=== PATIENT | female | born 1930 | race Caucasian/White ===

== ENCOUNTER → 2016-11-22 | Outpatient (CLI) | payer MEDICARE | LOC: OD 11:41 | PROVIDERS: ATTEND Internal Medicine Pulmonary Disease | DX: J44.9 Chronic obstructive pulmonary disease, unspecified (principal) | CPT/HCPCS: 71020 ==

== ENCOUNTER 2016-11-26 09:14 | Emergency (ER) | payer MEDICARE ==
--- NOTE | 2016-11-26 11:05 | ER Document Report ---
ED Respiratory Problem <CRUZ MENDOSA - Last Filed: 11/26/16 14:40> - General Mode of Arrival: Wheelchair Information source: Patient, Relative TRAVEL OUTSIDE OF THE [place] IN LAST 30 DAYS: No - HPI Patient complains to provider of: Other - Difficulty Breathing Onset: Yesterday Duration: Worse/persistent Context: Hx asthma, Hx COPD Cough: Productive - Yellow/White Sputum Sputum amount: Moderate EMS treatments: Oxygen - 2L <JUANTAD - Last Filed: 11/29/16 13:58> - General Chief Complaint: Breathing Difficulty Stated Complaint: DIFFICULTY BREATHING Notes: This 86-year-old female patient with O2 dependent COPD who does DuoNeb treatments at home comes in complaining of difficulty breathing and a yellow productive cough. She has bronchiectasis, pulmonary fibrosis, COPD. She has had prior pseudomonas lung infections. She has not been on penicillin or tobramycin nebulizations in 2-3 months. At this time she states her breathing feels better, nothing has been done other than to put her on a stretcher. She is on 2 L O2 with 95% O2 sat, she is not tachypneic or dyspneic. (CRUZ MENDOSA) Patient is an 86-year-old female presenting to the emergency department concerned of difficulty breathing onset last night. Patient states that she has a productive cough with yellow and white sputum. Patient denies any fever, and states that she is feeling a little bit better now although she has not received any treatment yet. Patient is on 2 L of oxygen at home, and she is on 2 L of oxygen here in the emergency department at 95% O2 saturation. Patient has a history of COPD, chronic pseudomonas bronchiectasis, and MRSA. Patient's granddaughter states that it has been quite some time since she has been on a round of Prednisone. (TAD MARTINEZ) - Related Data Allergies/Adverse Reactions: No Known Allergies Allergy (Verified 11/26/16 09:29) Past Medical History - General Information source: Patient, Relative - Social History Smoking Status: Former Smoker Cigarette use (# per day): No Chew tobacco use (# tins/day): No Frequency of alcohol use: None Drug Abuse: None Family History: Reviewed & Not Pertinent Patient has suicidal ideation: No Patient has homicidal ideation: No Pulmonary Medical History: Reports: Hx Asthma, Hx COPD, Hx Pneumonia, Other - Chronic pseudomonas bronchiectasis Endocrine Medical History: Denies: Hx Diabetes Mellitus Type 2 - Steroid- induced hyperglycemia Psychiatric Medical History: Reports: Hx Depression - "sometimes" Infectious Medical History: Reports: Hx MRSA Past Surgical History: Reports: Hx Cholecystectomy - Immunizations Hx Diphtheria, Pertussis, Tetanus Vaccination: Yes Hx Pneumococcal Vaccination: 07/31/15 <TAD MARTINEZ - Last Filed: 11/29/16 13:58> Review of Systems - Review of Systems Constitutional: No symptoms reported. denies: Fever EENT: No symptoms reported Cardiovascular: No symptoms reported Respiratory: See HPI, Cough, Short of breath, Sputum - Yellow and White, Wheezing Gastrointestinal: No symptoms reported Genitourinary: No symptoms reported Female Genitourinary: No symptoms reported Musculoskeletal: No symptoms reported Skin: No symptoms reported Hematologic/Lymphatic: No symptoms reported Neurological/Psychological: No symptoms reported -: Yes All other systems reviewed and negative <TAD MARTINEZ - Last Filed: 11/29/16 13:58> Physical Exam - General General appearance: Alert - HEENT Head: Normocephalic, Atraumatic Eyes: Normal Pupils: PERRL - Respiratory Respiratory status: No respiratory distress Chest status: Nontender Breath sounds: Rhonchi - Expiratory wheezes. Higher pitched wheezes in the mid right lobe, Wheezing Chest palpation: Normal - Cardiovascular Rhythm: Regular Heart sounds: Normal auscultation Murmur: No - Abdominal Inspection: Normal Distension: No distension Bowel sounds: Normal Tenderness: Nontender Organomegaly: No organomegaly - Back Back: Normal, Nontender - Extremities General upper extremity: Normal inspection General lower extremity: Normal inspection - Neurological Neuro grossly intact: Yes Cognition: Normal Stan Coma Scale Eye Opening: Spontaneous Stan Coma Scale Verbal: Oriented Stan Coma Scale Motor: Obeys Commands [place] Coma Scale Total: 15 Speech: Normal - Psychological Associated symptoms: Normal affect, Normal mood - Skin Skin Temperature: Warm Skin Moisture: Dry Skin Color: Normal <TAD MARTINEZ - Last Filed: 11/29/16 13:58> - Vital signs Vitals: Temp Pulse Resp BP Pulse Ox 98.0 F 107 H 20 126/54 H 96 11/26/16 09:29 11/26/16 09:29 11/26/16 09:29 11/26/16 09:29 11/26/16 09:29 (CRUZ MENDOSA) (TAD MARTINEZ) Course - Laboratory Result Diagrams: 11/26/16 10:24 11/26/16 10:24 <CRUZ MENDOSA - Last Filed: 11/26/16 14:40> - Laboratory Result Diagrams: 11/26/16 10:24 11/26/16 10:24 <TAD MARTINEZ - Last Filed: 11/29/16 13:58> - Re-evaluation Re-evalutation: 11/26/16 14:40 The patient is presently eating a dinner. She states her breathing feels well. Her pulse ox remains in the 95-96% range on 2 L. She is chronically on 2 L oxygen at home. At this point I do not see a good reason to start antibiotics, particularly with her past history of MRSA and Pseudomonas lung infections. I also do not see a good reason to start steroids at this time due to her lack of significant pulmonary symptoms. (CRUZ MENDOSA) - Vital Signs Vital signs: Temp Pulse Resp BP Pulse Ox 98.0 F 107 H 27 H 138/75 H 95 11/26/16 09:29 11/26/16 09:29 11/26/16 15:01 11/26/16 15:00 11/26/16 15:01 (CRUZ MENDOSA) (TAD MARTINEZ) - Laboratory Laboratory results interpreted by me: 11/26/16 11/26/16 11/26/16 10:24 10:24 13:25 Hgb 10.4 L Hct 33.7 L MCV 78 L MCH 24.0 L MCHC 30.7 L RDW 17.2 H Creatinine 0.51 L Creatine Kinase 22 L Albumin 3.4 L Ur Leukocyte Esterase SMALL H Urine Ascorbic Acid 20 H Discharge <CRUZ MENDOSA - Last Filed: 11/26/16 14:40> <TAD MARTINEZ - Last Filed: 11/29/16 13:58> - Discharge Clinical Impression: COPD with exacerbation, Pulmonary fibrosis Condition: Stable Disposition: HOME, SELF-CARE Additional Instructions: Your chest x-ray does not show an acute change today. Your blood work does not suggest a bacterial infection at this time. Your oxygen levels have remained stable and at a good level the entire day. At this time it does not appear that you will require steroids or antibiotics. Should continue your regular breathing treatments and oxygen at home. You should follow-up with your primary care provider Tuesday for recheck. RETURN TO THE EMERGENCY ROOM IF ANY NEW OR WORSENING SYMPTOMS. Referrals: RAMIREZ NAVARRO MD [Primary Care Provider] - Follow up in 3-5 days Scribe Documentation - Scribe Written by Scribe:: Tad Martinez 11/26/2016 1105 acting as scribe for :: Jose Miguel <TAD MARTINEZ - Last Filed: 11/29/16 13:58>
[2016-11-26] MEDS ORDERED: IPRATROPIUM/ALBUTEROL 0.5-2.5 MG/3 ML AMPUL NEB ONE (11:15)
[2016-11-26] MEDS ORDERED: METHYLPREDNISOLONE INJ 125 MG/2 ML SDV IV ONE (11:15)
[2016-11-26] MEDS ORDERED: ALBUTEROL SULFATE 0.083% NEB 2.5 MG/3 ML AMPUL NEB ONE (12:02)
[2016-11-26 12:54] LABS: ABSOLUTE EOSINOPHILS # (AUTO) 0.2 10^3/uL (0.0-0.6); ABSOLUTE LYMPHOCYTES (AUTO) 1.7 10^3/uL (0.5-4.7); ABSOLUTE NEUT (AUTO) 7.4 10^3/uL (1.7-8.2); BASOPHILS % (AUTO) 0.5 % (0-2); EOSINOPHILS % (AUTO) 1.6 % (0-6); HEMATOCRIT 33.7 % (36.0-47.0); HEMOGLOBIN 10.4 g/dL (12.0-15.5); HGB HCT DIFFERENCE -2.5; LYMPHOCYTES % (AUTO) 16.5 % (13-45); MEAN CORPUSCULAR HGB CONC 30.7 g/dL (32.0-36.0); MEAN CORPUSCULAR VOLUME 78 fl (80-97); RED BLOOD COUNT 4.31 10^6/uL (3.72-5.28); RED CELL DISTRIBUTION WIDTH 17.2 % (11.5-14.0); SEGMENTED NEUTROPHILS % (AUTO) 71.4 % (42-78); WHITE BLOOD COUNT 10.3 10^3/uL (4.0-10.5)
[2016-11-26 13:10] LABS: ALANINE AMINOTRANSFERASE 25 U/L (9-52); ALBUMIN 3.4 g/dL (3.5-5.0); ALKALINE PHOSPHATASE 99 U/L (38-126); ANION GAP 10 (5-19); ASPARTATE AMINO TRANSFERASE 20 U/L (14-36); BILIRUBIN,TOTAL 0.4 mg/dL (0.2-1.3); BLOOD UREA NITROGEN 16 mg/dL (7-20); CALCIUM 9.5 mg/dL (8.4-10.2); CARBON DIOXIDE 27 mmol/L (22-30); CHLORIDE 106 mmol/L (98-107); CREATINE KINASE 22 U/L (30-135); CREATININE RESULT 0.51 mg/dL (0.52-1.25); GLUCOSE 108 mg/dL (75-110); POTASSIUM 3.9 mmol/L (3.6-5.0); SODIUM 142.8 mmol/L (137-145); TOTAL PROTEIN 7.9 g/dL (6.3-8.2)
[2016-11-26 13:22] LABS: CREATINE KINASE MB 0.97 ng/mL (<4.55); TROPONIN I < 0.012 ng/mL
[2016-11-26 13:43] LABS: AMORPHOUS SEDIMENT,URINE TRACE /HPF; APPEARANCE,URINE CLOUDY; BILIRUBIN,URINE NEGATIVE (NEGATIVE); GLUCOSE, URINE NEGATIVE (NEGATIVE); KETONES,URINE NEGATIVE (NEGATIVE); LEUKOCYTE ESTERASE,URINE SMALL (NEGATIVE); NITRITE,URINE NEGATIVE (NEGATIVE); PROTEIN,URINE NEGATIVE (NEGATIVE); URINE SPECIFIC GRAVITY 1.014; UROBILINOGEN,URINE NEGATIVE mg/dL (<2.0)
[2016-11-26 15:11] VITALS: BP 138/75
== END 2016-11-26 15:12 | disposition home or self-care (01) ==
LOC: ER 09:14
DX: J44.1 Chronic obstructive pulmonary disease with (acute) exacerbation (principal); J84.10 Pulmonary fibrosis, unspecified; J45.909 Unspecified asthma, uncomplicated; R05 Cough; R06.02 Shortness of breath; Z99.81 Dependence on supplemental oxygen; Z86.14 Personal history of Methicillin resistant Staphylococcus aureus infection; Z87.891 Personal history of nicotine dependence; Z87.01 Personal history of pneumonia (recurrent)
CPT/HCPCS: 94640 ×2; 99285; 96374; 36415; 87040; 82553; 82550; 85025; 80053; 81001; 84484; 71010; J2930; A9270 ×2; J7620

== ENCOUNTER 2016-11-29 18:30 | Inpatient (IN) | payer MEDICARE ==
[2016-11-29] MEDS ORDERED: METHYLPREDNISOLONE INJ 125 MG/2 ML SDV IV ONE (18:37)
[2016-11-29] MEDS ORDERED: IPRATROPIUM/ALBUTEROL 0.5-2.5 MG/3 ML AMPUL NEB ONE ×2 (18:37→22:03)
--- NOTE | 2016-11-29 18:37 | ER Document Report ---
ED Medical Screen (RME) - General Stated Complaint: BREATHING PROBLEM Notes: 86-year-old female returns emergency department shortness of breath, tachycardia history of COPD on 2 L of continuous oxygen. Discharged from the ED 3 days ago and returns with worsening symptoms. I have greeted and performed a rapid initial assessment of this patient. A comprehensive ED assessment and evaluation of the patient, analysis of test results and completion of the medical decision making process will be conducted by additional ED providers. TRAVEL OUTSIDE OF THE [place] IN LAST 30 DAYS: No - Related Data Allergies/Adverse Reactions: No Known Allergies Allergy (Verified 11/29/16 18:35) Past Medical History - Past Medical History Cardiac Medical History: Denies: Hx Congestive Heart Failure, Hx DVT, Hx Heart Attack, Hx Hypercholesterolemia, Hx Hypertension, Hx Pulmonary Embolism Pulmonary Medical History: Reports: Hx Asthma, Hx COPD, Hx Pneumonia Neurological Medical History: Denies: Hx Seizures Endocrine Medical History: Denies: Hx Diabetes Mellitus Type 1, Hx Diabetes Mellitus Type 2 - Steroid-induced hyperglycemia, Hx Hyperthyroidism, Hx Hypothyroidism Renal/ Medical History: Denies: Hx Peritoneal Dialysis GI Medical History: Denies: Hx Cirrhosis, Hx Gastroesophageal Reflux Disease, Hx Hepatitis Musculoskeltal Medical History: Denies Hx Arthritis Psychiatric Medical History: Reports: Hx Depression - "sometimes" Infectious Medical History: Reports: Hx MRSA. Denies: Hx Hepatitis Past Surgical History: Reports: Hx Cholecystectomy - Immunizations Hx Diphtheria, Pertussis, Tetanus Vaccination: Yes
[2016-11-29] MEDS: ALBUTEROL SULFATE 0.083% NEB 2.5 MG/3 ML AMPUL NEB SCH ×2 (19:12→21:01)
[2016-11-29] MEDS ORDERED: NORMAL SALINE 1000 ML 1,000 ML IV ONE (19:24)
--- NOTE | 2016-11-29 19:31 | ER Document Report ---
ED Respiratory Problem - General Time seen by provider: 19:20 Mode of Arrival: Medic Information source: Patient, Relative TRAVEL OUTSIDE OF THE [place] IN LAST 30 DAYS: No - HPI Patient complains to provider of: COPD, Cough, Short of breath Onset: This afternoon - see HPI note Duration: Worse/persistent Context: Hx COPD <MELANY LONDONO - Last Filed: 11/30/16 00:14> <YANY JENKINS - Last Filed: 11/30/16 01:45> - General Chief Complaint: Breathing Difficulty Stated Complaint: BREATHING PROBLEM Notes: Patient is an 86-year-old female presenting to the emergency department with complaints of difficulty breathing. Patient's difficulty putting his onset this afternoon. Patient was seen Tuesday in emergency department and states she is worse since then. Patient has had pneumonia in the past. Patient complains of sometimes having some left sided abdominal pains. Patient is asked to sit up today and also complains of cough. Patient's family confirms that the patient is DO NOT RESUSCITATE and DO NOT INTUBATE. (MELANY LONDONO) - Related Data Allergies/Adverse Reactions: No Known Allergies Allergy (Verified 11/29/16 18:35) Past Medical History - General Information source: Patient, [facility] Records - Social History Smoking Status: Never Smoker Chew tobacco use (# tins/day): No Frequency of alcohol use: None Drug Abuse: None Family History: None Patient has suicidal ideation: No Patient has homicidal ideation: No Pulmonary Medical History: Reports: Hx Asthma, Hx COPD, Hx Pneumonia Endocrine Medical History: Reports: Hx Diabetes Mellitus Type 2 - Steroid- induced hyperglycemia Musculoskeltal Medical History: Denies Hx Arthritis Psychiatric Medical History: Reports: Hx Depression - "sometimes" Infectious Medical History: Reports: Hx MRSA Past Surgical History: Reports: Hx Cholecystectomy - Immunizations Hx Diphtheria, Pertussis, Tetanus Vaccination: Yes Hx Pneumococcal Vaccination: 07/31/15 <MELANY LONDONO - Last Filed: 11/30/16 00:14> Review of Systems - Review of Systems Constitutional: No symptoms reported EENT: No symptoms reported Cardiovascular: No symptoms reported Respiratory: See HPI, Cough, Short of breath Gastrointestinal: See HPI, Abdominal pain Genitourinary: No symptoms reported Female Genitourinary: No symptoms reported Musculoskeletal: No symptoms reported Skin: No symptoms reported Hematologic/Lymphatic: No symptoms reported Neurological/Psychological: No symptoms reported -: Yes All other systems reviewed and negative <MELANY LONDONO - Last Filed: 11/30/16 00:14> Physical Exam - Vital signs Interpretation: Hypertensive, Tachycardic, Hypoxic, Tachypneic - General General appearance: Alert In distress: Mild - Respiratory Respiratory status: Respiratory distress Chest status: Nontender, Accessory muscle use Breath sounds: Decreased air movement, Wheezing - Cardiovascular Rhythm: Regular, Tachycardia - Back Back: Normal - Extremities General upper extremity: Normal inspection, Normal ROM General lower extremity: Normal inspection, Normal ROM - Psychological Associated symptoms: Normal affect, Normal mood <YANY JENKINS - Last Filed: 11/30/16 01:45> - Vital signs Vitals: Temp Pulse Resp BP Pulse Ox 98.7 F 124 H 32 H 156/71 H 97 11/29/16 18:37 11/29/16 18:37 11/29/16 18:37 11/29/16 18:37 11/29/16 18:37 (MELANY LONDONO) (YANY JENKINS) Course - Laboratory Result Diagrams: 11/29/16 19:45 11/29/16 19:45 - Consults Dr. Perez Time consulted: 21:27 Consulted provider: will see as inpatient <MELANY LONDONO - Last Filed: 11/30/16 00:14> - Laboratory Result Diagrams: 11/29/16 19:45 11/29/16 19:45 - Diagnostic Test Radiology reviewed: Image reviewed, Reports reviewed <YANY JENKINS - Last Filed: 11/30/16 01:45> - Re-evaluation Re-evalutation: 11/29/16 20:41 Patient is an 78-year-old female who comes in with difficulty breathing. Patient with wheezing on exam. Patient with probable pneumonia. Patient has been given nebulizer treatments and steroids here. She has been given magnesium and started on antibiotics. Blood cultures have been sent. Patient was discussed with family who reiterates the patient is DNR/DNI. Patient has been placed on BiPAP after being given Ativan and she is tolerate it well. Blood gas within normal limits. Patient will be admitted to telemetry. ( YANY JENKINS) - Vital Signs Vital signs: Temp Pulse Resp BP Pulse Ox 97.8 F 93 32 H 124/56 L 95 11/30/16 00:45 11/30/16 00:45 11/30/16 00:45 11/30/16 00:45 11/30/16 00:45 (MELANY LONDONO) (YANY JENKINS) - Laboratory Laboratory results interpreted by me: 11/29/16 11/29/16 11/29/16 19:45 19:45 20:07 WBC 13.4 H Hgb 10.8 L Hct 34.4 L MCV 76 L MCH 24.0 L MCHC 31.5 L RDW 16.3 H Seg Neutrophils % 80.1 H Lymphocytes % 10.2 L Absolute Neutrophils 10.8 H Carbon Dioxide 32 H BUN 21 H Creatinine 0.47 L Glucose 142 H POC Glucose 148 H Total Protein 8.7 H Albumin 3.4 L (YANY JENKINS) - Consults Dr. Perez Reason for consultation: 11/29/16 21:[address] Perez, patient will be admitted. (MELANY LONDONO) Discharge <MELANY LONDONO - Last Filed: 11/30/16 00:14> - Discharge Admitting Provider: Slim Perez Unit Admitted: Telemetry <YANY JENKINS - Last Filed: 11/30/16 01:45> - Discharge Clinical Impression: COPD with exacerbation, DNR (do not resuscitate), Respiratory distress Pneumonia Qualifiers: Pneumonia type: due to methicillin-resistant Staphylococcus aureus (MRSA) Laterality: unspecified laterality Lung location: unspecified part of lung Qualified Code(s): J15.212 - Pneumonia due to Methicillin resistant Staphylococcus aureus Condition: Stable Disposition: ADMITTED INPATIENT Scribe Attestation: 11/30/16 01:45 I personally performed the services described in the documentation, reviewed and edited the documentation which was dictated to the scribe in my presence, and it accurately records my words and actions. (YANY JENKINS) Scribe Documentation - Scribe Written by Scribe:: Melany Londono 11/30/16 00:20 acting as scribe for :: Mike <MELANY LONDONO - Last Filed: 11/30/16 00:14>
[2016-11-29] MEDS ORDERED: CEFEPIME 2 GM/D5W RTU 50 ML IV ONE (19:43)
[2016-11-29] MEDS ORDERED: LEVOFLOXACIN 500 MG/D5W RTU 100 ML IV ONE (19:44)
[2016-11-29] MEDS ORDERED: VANCOMYCIN HCL INJ 1000 MG VIAL IV ONE (19:44)
[2016-11-29 20:06] LABS: ABSOLUTE EOSINOPHILS # (AUTO) 0.2 10^3/uL (0.0-0.6); ABSOLUTE LYMPHOCYTES (AUTO) 1.4 10^3/uL (0.5-4.7); ABSOLUTE MONOCYTES (AUTO) 1.1 10^3/uL (0.1-1.4); ABSOLUTE NEUT (AUTO) 10.8 10^3/uL (1.7-8.2); BASOPHILS % (AUTO) 0.2 % (0-2); EOSINOPHILS % (AUTO) 1.2 % (0-6); HEMATOCRIT 34.4 % (36.0-47.0); HEMOGLOBIN 10.8 g/dL (12.0-15.5); LYMPHOCYTES % (AUTO) 10.2 % (13-45); MEAN CORPUSCULAR HGB CONC 31.5 g/dL (32.0-36.0); MEAN CORPUSCULAR VOLUME 76 fl (80-97); MONOCYTES % (AUTO) 8.3 % (3-13); RED BLOOD COUNT 4.52 10^6/uL (3.72-5.28); RED CELL DISTRIBUTION WIDTH 16.3 % (11.5-14.0); SEGMENTED NEUTROPHILS % (AUTO) 80.1 % (42-78); VENOUS BLOOD BASE EXCESS 5.7 mmol/L; VENOUS BLOOD HCO3 31.3 mmol/L (20-32); VENOUS BLOOD PCO2 49.4 mmHg (35-63); VENOUS BLOOD PH 7.42 (7.30-7.42); WHITE BLOOD COUNT 13.4 10^3/uL (4.0-10.5)
[2016-11-29 20:14] LABS: PROTHROMBIN TIME 13.5 SEC (11.4-15.4)
[2016-11-29] MEDS ORDERED: LORAZEPAM INJ 2 MG/1 ML VIAL IV ONE (20:15)
[2016-11-29] MEDS: MAGNESIUM SULFATE/D5W 100 ML IV SCH ×2 (20:24→21:50)
[2016-11-29 20:30] LABS: ALANINE AMINOTRANSFERASE 23 U/L (9-52); ALBUMIN 3.4 g/dL (3.5-5.0); ALKALINE PHOSPHATASE 106 U/L (38-126); ANION GAP 9 (5-19); ASPARTATE AMINO TRANSFERASE 30 U/L (14-36); BILIRUBIN,TOTAL 0.5 mg/dL (0.2-1.3); BLOOD UREA NITROGEN 21 mg/dL (7-20); CALCIUM 9.6 mg/dL (8.4-10.2); CARBON DIOXIDE 32 mmol/L (22-30); CHLORIDE 98 mmol/L (98-107); CREATININE RESULT 0.47 mg/dL (0.52-1.25); GLUCOSE 142 mg/dL (75-110); POTASSIUM 4.3 mmol/L (3.6-5.0); SODIUM 139.2 mmol/L (137-145); TOTAL PROTEIN 8.7 g/dL (6.3-8.2)
[2016-11-29] MEDS ORDERED: CEFEPIME HCL 2 GM in DEXTROSE 5%-WATER 50 ML IV ONE (22:00)
[2016-11-29 23:53] LABS: APPEARANCE,URINE SLIGHTLY-CLOUDY; BILIRUBIN,URINE NEGATIVE (NEGATIVE); GLUCOSE, URINE 50 mg/dL (NEGATIVE); KETONES,URINE NEGATIVE (NEGATIVE); LEUKOCYTE ESTERASE,URINE TRACE (NEGATIVE); NITRITE,URINE NEGATIVE (NEGATIVE); PROTEIN,URINE NEGATIVE (NEGATIVE); URINE SPECIFIC GRAVITY 1.005; UROBILINOGEN,URINE NEGATIVE mg/dL (<2.0)
--- NOTE | 2016-11-30 00:05 | EKG REPORT ---
SEVERITY:- ABNORMAL ECG - SINUS TACHYCARDIA PROBABLE LEFT ATRIAL ABNORMALITY : Confirmed by: Cali Miguel 30-Nov-2016 00:04:48
[2016-11-30 00:36] LABS: VENOUS BLOOD BASE EXCESS -2.1 mmol/L; VENOUS BLOOD HCO3 23.5 mmol/L (20-32); VENOUS BLOOD PCO2 43.3 mmHg (35-63); VENOUS BLOOD PH 7.35 (7.30-7.42)
[2016-11-30] MEDS ORDERED: GUAIFENESIN SYRP 200 MG/10 ML UDC PO PRN ×2 (02:36→11:22)
[2016-11-30] MEDS ORDERED: GLUCAGON,HUMAN RECOMB 1 MG INJ IM PRN (02:49)
[2016-11-30] MEDS ORDERED: DEXTROSE 50%-WATER 25 GM/50 ML DISP.SYRIN IV PRN ×2 (02:49)
[2016-11-30] MEDS ORDERED: DEXTROSE 40% GEL 15 GM TUBE PO PRN ×2 (02:49)
[2016-11-30] MEDS ORDERED: ACETAMINOPHEN 325 MG TABLET PO PRN (02:51)
[2016-11-30] MEDS ORDERED: ALBUTEROL SULFATE 0.083% NEB 2.5 MG/3 ML AMPUL NEB PRN (02:51)
[2016-11-30] MEDS ORDERED: GENTAMICIN SULFATE 0 MG in DEXTROSE 5%-WATER 100 ML IV NR (03:00)
[2016-11-30] MEDS ORDERED: PHARMACY COMMUNICATION ORDER MC NR (03:00)
--- NOTE | 2016-11-30 03:18 | PDOC H&P ---
History of Present Illness Admission Date/PCP: 11/29/16 21:48 RAMIREZ NAVARRO Patient complains of: SHORT OF BREATH History of Present Illness: SANG CHOW is a 86 year old female with known underlying COPD , bronchiectasis, and pulmonary fibrosis who presents For evaluation of above complaint. Patient has been discussed with emergency room physician who evaluated the patient. Patient is oriented only to the fact that she is in the hospital and is able to provide no history whatsoever in terms of acute or chronic events, review of systems, personal habits, family history, etc. No friends or family are present. Old inpatient records are reviewed. Most of her verbalization is only unintelligible mumbling. According to emergency room physician notes, difficulty breathing began the afternoon of the . Was seen in the emergency room last Tuesday. Patient told the emergency room physician she is worse since then. Complains of cough. No further information available this point in time. BIPAP applied by ER MD, with improvement in her overall clinical picture. Laboratory results are listed in [employer] and are reviewed. X-ray summary results are listed below, with full report(s) reviewed. . EKG reviewed. Social history/personal habits: . Daughter is . 2 grandchildren. No tobacco or illicit drug use. Reportedly a rather extensive history of secondhand smoke exposure from her . History of drinking a rare glass of wine; uncertain current intake.No further information available this point in time. Allergies/adverse reactions NKDA. Home medicationshome medications initially autopopulated into [employer] may not accurately reflect patient's true medications, dosages, and/or frequencies. Unfortunately, patient not able to provide any information related to medications/dosages/frequencies. Order has been entered for staff to contact family, outpatient physician, and/or pharmacy to more accurately determine medications, dosages, and frequencies and to contact physician when that has been accomplished. REVIEW OF SYSTEMS: See history and present illness.No further information available this point in time. PHYSICAL EXAMINATION: 5 feet 3 inches tall. 41.7 kg. BMI 16.3 kg/m. Temperature 97.8. Pulse 98 and regular. Blood pressure 124/56. 95% saturation on BiPAP 40%, 12/6. Respirations are 28 and unlabored. Intermittent coarse slightly productive cough. Frail otherwise well-nourished elderly female appearing approximately her stated age. She is awake. Does follow basic commands appropriately. Verbal response as noted in history and present illness. Mildly anxious, but no agitation. Skin is warm and dry. No grossly obvious evidence of rash in areas of skin examined. No subcutaneous nodules palpated. Per nursing staff, no evidence of skin breakdown on posterior surfaces, heels or malleoli. ENT: Perhaps Mildly hard of hearing to normal conversation. Tongue midline on protrusion pink and slightly tacky. Exam slightly limited by BiPAP mask with attaching straps. Eyes: No scleral icterus. Pupils equal and reactive to light at 4 mm. [place] conjunctivae. Neck is supple and nontender to gentle active range of motion and palpation. Midline trachea. No palpable thyroid nodule mass enlargement or tenderness. Lymphatic: No palpable cervical or clavicular nodes. Neck and lymphatic exams limited by patient body habitus. Exam slightly limited by BiPAP mask with attaching straps. Psychiatric: Not able to be adequately evaluated due to her current status. Lungs: Auscultation reveals equal breath sounds bilaterally. No use of accessory respiratory muscles. Slightly coarse breath sounds, right base. Cardiovascular: Heart regular rate and rhythm, without gallop murmur or rub. No abdominal aortic bruits. Auscultation for carotid bruits masked by airway sounds from BiPAP device. No ankle or pedal edema. Faintly palpable dorsalis pedis pulses. Abdomen: soft, , slightly distended nontender with positive bowel sounds. Unable to adequately evaluate abdomen for masses or organomegaly due to distention. Extremities: Feet are warm and dry. No calf tenderness to compression. No grossly obvious visual evidence of calf swelling. Gentle manipulation of lower extremities fails to reveal any obvious evidence of injury or instability to knees hips or ankles. Neurologic: Moves upper extremities grossly normally. Patellar reflexes absent. Absent Babinski. Light touch can't be adequately evaluated due to her current mental status.. Dorsiflexion and plantarflexion of feet 5 / 5 and symmetric. Past Medical History Cardiac Medical History: Denies: Congestive Heart Failure, DVT, Myocardial Infarction, Hyperlipidema, Hypertension, Pulmonary Embolism Pulmonary Medical History: Reports: Asthma, Chronic Obstructive Pulmonary Disease (COPD), Pneumonia, Other - bronchiectasis, pulm fibrosis Neurological Medical History: Denies: Seizures Endocrine Medical History: Reports: Diabetes Mellitus Type 2 - Steroid-induced hyperglycemia Denies: Diabetes Mellitus Type 1, Hyperthyroidism, Hypothyroidism GI Medical History: Denies: Cirrhosis, Gastroesophageal Reflux Disease, Hepatitis Musculoskeltal Medical History: Denies: Arthritis Psychiatric Medical History: Reports: Depression Infectious Medical History: Reports: Methicillin-Resistant Staph Aureus Past Surgical History Past Surgical History: Reports: Cholecystectomy Social History Information Source: [facility], [facility] Records Smoking Status: Never Smoker Frequency of Alcohol Use: None Hx Recreational Drug Use: No Drugs: None Hx Prescription Drug Abuse: No - Advance Directive Resuscitation Status: Do Not Resuscitate Surrogate healthcare decision maker:: Granddaughter Khushbu Agrawal. Per emergency room physician, documented in her notes, she did confirm with family that patient is to remain DO NOT RESUSCITATE/ DO NOT INTUBATE. At 2:43 AM this morning, I attempted to contact by telephone Miss Agrawal. Generic voicemail was left, requesting that she call me at the hospital. Per July 2016 history and physical, patient does have a portable DO NOT RESUSCITATE document. Currently not on the chart. Family History Family History: None Parental Family History Reviewed: No - No information available this point in time. Children Family History Reviewed: No Sibling(s) Family History Reviewed.: No Medication/Allergy Home Medications: RX: Benzonatate [Tessalon Perles 100 mg Capsule] 100 mg PO TIDP PRN 11/30/16 RX: Fluticasone Propionate [Flonase Nasal [place] 50 Mcg/[place] 16 gm] 2 spray NASL Q12 11/30/16 RX: Guaifenesin [Mucinex Sr 600 mg Tablet.sa] 600 mg PO DAILY 11/30/16 RX: Guaifenesin [Robitussin Syrup 200 mg/10 ml Ud Cup] 200 mg PO QIDP PRN RX: Ipratropium/Albuterol Sulfate [Iprat-Albut 0.5-3(2.5) mg/3 ml] 3 ml NEB Q6HP PRN 11/30/16 RX: Mirtazapine [Remeron 15 mg Tablet] 15 mg PO QHS 11/30/16 RX: Multivitamin [Multivitamins] 1 each PO DAILY 11/30/16 RX: Propylene Glycol/Peg 400/Pf [Systane 0.3-0.4% Eye Drops] 1 each OU HSP PRN 11/30/16 RX: Acetaminophen [Tylenol 325 mg Tablet] 975 mg PO Q8 tablet 12/04/16 RX: Calcium Carbonate/Vitamin D3 [Os-Samuel 250 mg with Vitamin D 125 Units] 2 tab PO DAILY tablet 12/04/16 RX: Carboxymethylcellulose Sodium [Refresh Plus 0.5% Oph Soln 0.4 ml [place] ] 1 drop OU HSP PRN droperette 12/04/16 RX: Fluticasone Propionate [Flonase Nasal [place] 50 Mcg/[place] 16 gm] 2 spray NASL Q12 spray.pump 12/04/16 RX: Guaifenesin [Mucinex Sr 600 mg Tablet.sa] 600 mg PO DAILY PRN tablet.sa 02/14 RX: Levofloxacin [Levaquin 250 mg Tablet] 250 mg PO DAILY #5 tablet 12/04/16 RX: Prednisone [Deltasone 20 mg Tablet] 20 mg PO DAILY #3 tablet 12/04/16 Allergies/Adverse Reactions: No Known Allergies Allergy (Verified 11/29/16 18:35) Physical Exam Vital Signs: Temp Pulse Resp BP Pulse Ox 97.8 F 89 32 H 124/56 L 95 11/30/16 00:45 11/30/16 02:00 11/30/16 00:45 11/30/16 00:45 11/30/16 00:45 Intake & Output 11/29/16 11/30/16 12/01/16 00:59 00:59 00:59 Weight 41.7 kg Results Laboratory Results: 11/29/16 11/30/16 22:34 00:27 VBG pH 7.35 VBG pCO2 43.3 VBG HCO3 23.5 VBG Base Excess -2.1 Urine Color YELLOW Urine Appearance SLIGHTLY-CLOUDY Urine pH 7.0 Ur Specific [place] 1.005 Urine Protein NEGATIVE Urine Glucose (UA) 50 H Urine Ketones NEGATIVE Urine Blood NEGATIVE Urine Nitrite NEGATIVE Ur Leukocyte Esterase TRACE H Urine WBC (Auto) 5 Urine RBC (Auto) 1 Impressions: Chest X-Ray 11/29/16 18:37 IMPRESSION: Stable coarse interstitial/nodular changes throughout the lung snow, with known bronchiectasis. No new confluent infiltrates. Assessment & Plan - Diagnosis (1) Abnormal urinalysis Is this a current diagnosis for this admission?: YesPlan: Urine culture. (2) Acute and chronic respiratory failure with hypercapnia Is this a current diagnosis for this admission?: YesPlan: Patient will be admitted under COPD exacerbation and pneumonia protocol. Incentive spirometry twice a day. Scheduled DuoNeb's. PRN albuterol nebs Solu-Medrol IV Pepcid for gastritis prophylaxis. Antibiotics will consist of intravenous gentamicin, along with tobramycin nebulizer treatments, per review of her July 2016 discharge summary. Pharmacy to assist with gentamicin dosing.. Rapid flu ordered. Prior sputum culture and sensitivity results noted. Knee high SCDs for DVT prophylaxis, along with subcutaneous heparin. Time spent in evaluation and management of patient: 58 minutes. (3) COPD with exacerbation Is this a current diagnosis for this admission?: Yes (4) History of MRSA infection of lungs Is this a current diagnosis for this admission?: YesPlan: Contact precautions. (5) Pneumonia Qualifiers: Pneumonia type: due to methicillin-resistant Staphylococcus aureus (MRSA) Laterality: unspecified laterality Lung location: unspecified part of lung Qualified Code(s): J15.212 - Pneumonia due to Methicillin resistant Staphylococcus aureus Is this a current diagnosis for this admission?: Yes (6) DNR (do not resuscitate) Is this a current diagnosis for this admission?: Yes (7) Bronchiectasis Qualifiers: Bronchiectasis type: with acute lower respiratory infection Qualified Code(s): J47.0 - Bronchiectasis with acute lower respiratory infection Is this a current diagnosis for this admission?: Yes (8) Pulmonary fibrosis Is this a current diagnosis for this admission?: Yes - Inpatient Certification Based on my medical assessment, after consideration of the patient's comorbidities, presenting symptoms, or acuity I expect that the services needed warrant INPATIENT care.: Yes I certify that my determination is in accordance with my understanding of Medicare's requirements for reasonable and necessary INPATIENT services [42 CFR 412.3e].: Yes Medical Necessity: Need Close Monitoring Due to Risk of Patient Decompensation, Need For IV Fluids, Need For Continuous Telemetry Monitoring, Need for Nebulizer Therapy and Monitoring of Response, Need for IV Antibiotics, Risk of Complication if Not Cared For in Hospital, Risk of Diagnosis Which Will Require Inpatient Eval/Care/Monitoring Post Hospital Care: D/C or Transfer Summary
[2016-11-30] MEDS: METHYLPREDNISOLONE INJ 40 MG/1 ML SDV IV SCH ×3 (03:38→20:44)
[2016-11-30] MEDS: NORMAL SALINE 1000 ML 1,000 ML IV PRN ×2 (03:38→16:20)
[2016-11-30] MEDS ORDERED: TOBRAMYCIN SULFATE INJ 80 MG/2 ML VIAL NEB ONE (03:45)
[2016-11-30 07:30] LABS: ABSOLUTE LYMPHOCYTES (AUTO) 0.6 10^3/uL (0.5-4.7); ABSOLUTE MONOCYTES (AUTO) 0.1 10^3/uL (0.1-1.4); ABSOLUTE NEUT (AUTO) 6.2 10^3/uL (1.7-8.2); BASOPHILS % (AUTO) 0.1 % (0-2); HEMATOCRIT 30.6 % (36.0-47.0); HEMOGLOBIN 9.9 g/dL (12.0-15.5); HGB HCT DIFFERENCE -0.9; LYMPHOCYTES % (AUTO) 8.2 % (13-45); MEAN CORPUSCULAR HEMOGLOBIN 24.7 pg (27.0-33.4); MEAN CORPUSCULAR HGB CONC 32.3 g/dL (32.0-36.0); MEAN CORPUSCULAR VOLUME 77 fl (80-97); MONOCYTES % (AUTO) 1.1 % (3-13); RED CELL DISTRIBUTION WIDTH 16.4 % (11.5-14.0); SEGMENTED NEUTROPHILS % (AUTO) 90.6 % (42-78); WHITE BLOOD COUNT 6.9 10^3/uL (4.0-10.5)
[2016-11-30 07:31] LABS: VENOUS BLOOD BASE EXCESS 0.9 mmol/L; VENOUS BLOOD PCO2 43.4 mmHg (35-63); VENOUS BLOOD PH 7.4 (7.30-7.42)
[2016-11-30 07:49] LABS: ANION GAP 8 (5-19); BLOOD UREA NITROGEN 15 mg/dL (7-20); CALCIUM 8.8 mg/dL (8.4-10.2); CARBON DIOXIDE 27 mmol/L (22-30); CHLORIDE 108 mmol/L (98-107); CREATININE RESULT 0.44 mg/dL (0.52-1.25); GLUCOSE 150 mg/dL (75-110); POTASSIUM 4.4 mmol/L (3.6-5.0); SODIUM 142.7 mmol/L (137-145)
[2016-11-30] MEDS ORDERED: TOBRAMYCIN SULFATE INJ 80 MG/2 ML VIAL NEB SCH (08:00)
[2016-11-30] MEDS: IPRATROPIUM/ALBUTEROL 0.5-2.5 MG/3 ML AMPUL NEB SCH ×3 (08:01→19:46)
[2016-11-30] MEDS ORDERED: TOBRAMYCIN SULFATE NEB 40 MG/ML 30 ML NEB PRN (10:00)
[2016-11-30] MEDS: HEPARIN SOD (PORCINE) 5,000 UNIT/ML 1 ML SYRINGE SUBCUT SCH ×2 (10:57→21:42)
[2016-11-30] MEDS ORDERED: PROPYLENE GLYCOL OP PRN (11:22)
[2016-11-30] MEDS ORDERED: PEG OP PRN (11:22)
[2016-11-30] MEDS ORDERED: LORAZEPAM 0.5 MG TABLET PO PRN (11:22)
[2016-11-30] MEDS: ACETAMINOPHEN 325 MG TABLET PO SCH ×2 (13:28→21:42)
[2016-11-30] MEDS ORDERED: ACETAMINOPHEN 1000 MG PO SCH (14:00)
--- NOTE | 2016-11-30 15:13 | Physician Advisory Note ---
Physician Advisor ProgressNote .: Pursuant to the plan for [facility], I have reviewed the medical record for this patient. Physician Advisor Statement: Possible documentation opportunities if attending agrees: 1. "possible sepsis due to PNA, present on admission, despite neg BCs, ruled in /out" - "based on leukocytosis, tachycardia of 124, tachypnea of 32, ..." 2. "suspected MRSA pneumonia of RLL" [need organism & lobe - H&P stated coarseness Rt base. May not show on CXR given underlying intravascular volume depletion likely w/Cr 21 + Cr only 0.47.] 3. r.e. dx of "Ac on chr resp failure" - - Please document "pt w/hypoxemia, resp distress & accessory muscle use in ED, requiring O2 & BiPAP" [ED dr documented it, but attending has to confirm finding for it to be captured by coders.] 4. Please list Principal Dx for which pt is needing admission as Dx #1 in all notes. 5. 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 As always, if concerned about any unstable VS or abnormal labs, please comment on them & note what doing about them, & please document each day the potential clinical problems you are concerned could occur if pt not kept in hospital for tx at this time. Discussion: 86yo female w/ chronic co-morbidities including COPD w/extensive bronchiectasis/ interstitial lung dz/pulmonary fibrosis, DM-2, MRSA pneumonia, underweight with BMI 16.3 - presented 1/30 PM to ED w/SOB, cough, worsening since Tuesday's ED visit, w/ some Lt abd pains. (+) T 98.7, HR 124, RR32, 156/71, 97% sat initially, then "hypoxic", w/(+)resp distress", "accessory muscle use", wheezing, suspected pneumonia. WBC 13.4, Hgb 10.8, bicarb 32, BUN 21, "Cr 0.47, U/A w/tr LE. Tongue "sl tacky", ED gave 2 nebs, IV Solumedrol, IV vanc, IV NS bolus, IV Cefepime & IV LEvaquin. Attending ordered Tobramycin nebs, Solumedrol q8h + prednisone, NS @75, Duonebs q6h WA, albuterol prn, tele, I/Os, flu A&B testing, incentive spirometry Status: Extremely elderly pt with severe underlying lung dz comes in w/(+)Sepsis-2 criteria, resp distress/accessory muscle use, & despite aggressive care in ED & on admission, remained persistently tachycardic into the AM, & still persistently tachypneic w/RR 20-40 this AM, despite use of BiPAP & O2. This pt is clearly not hemodynamically stable for d/c yet. MRSA pneumonia is suspected , which will require very close monitoring with parenteral tx.s, with very high risk for further pulmonary decompensation. Pt has evidence of severe malnutrition, which further takes away from her ability to fight off & recover from this acute insult. Clearly, the attending has no expectation of d/c today , with new orders for [place] nebs likely meaning pt having difficulty mobilizing secretions, & adding IV vanc & cefepime, + sputum cx. This is a seriously ill pt, & ongoing tx, likely for several days at least, in inpatient hospital setting is medically reasonable & necessary to protect pt's health, safety, & medical condition. Appropriate for Inpt status. Thanks for your help with documentation accuracy/specificity improvement! Marisel Peres MD [facility] Physician Advisor, Fellow of Hospital Medicine
--- NOTE | 2016-11-30 16:01 | PDOC PROGRESS REPORT ---
Subjective Progress Note for:: 11/30/16 Subjective:: Patient is seen on morning rounds. She is awake alert presently on BiPAP. She states she wants BiPAP mask off. We did remove the mask and placed her on nasal cannula at 3 L/m. She is oxygenating well at present time. She is no longer quite as dyspneic as she was when she presented to the hospital. She has a history of interstitial lung disease and chronic bronchiectasis. She states she became she became more dyspneic at home over the last 3 days. She's had a productive cough, increasing dyspnea, and chills. She denies any other symptoms at the present time. Physical Exam Vital Signs: Temp Pulse Resp BP Pulse Ox 97.8 F 85 15 117/57 L 99 11/30/16 12:25 11/30/16 14:00 11/30/16 14:00 11/30/16 12:25 11/30/16 14:00 Intake & Output 11/29/16 11/30/16 12/01/16 06:59 06:59 06:59 Intake Total 196 Balance 196 General appearance: PRESENT: no acute distress, thin, well-developed Head exam: PRESENT: atraumatic, normocephalic Eye exam: PRESENT: conjunctiva pink, EOMI, PERRLA. ABSENT: scleral icterus Ear exam: PRESENT: normal external ear exam Mouth exam: PRESENT: moist, tongue midline Neck exam: ABSENT: carotid bruit, JVD, lymphadenopathy, thyromegaly Respiratory exam: PRESENT: accessory muscle use, decreased breath sounds, rhonchi, symmetrical, tachypnea Cardiovascular exam: PRESENT: RRR. ABSENT: diastolic murmur, rubs, systolic murmur Pulses: PRESENT: normal dorsalis pedis pul GI/Abdominal exam: PRESENT: normal bowel sounds, soft. ABSENT: distended, guarding, mass, organolmegaly, rebound, tenderness Rectal exam: PRESENT: deferred Extremities exam: PRESENT: full ROM. ABSENT: calf tenderness, clubbing, pedal edema Neurological exam: PRESENT: alert, awake, oriented to person, oriented to place , oriented to time, oriented to situation, CN II-XII grossly intact. ABSENT: motor sensory deficit Psychiatric exam: PRESENT: appropriate affect, normal mood. ABSENT: homicidal ideation, suicidal ideation Skin exam: PRESENT: dry, intact, warm. ABSENT: cyanosis, rash Results Laboratory Results: 11/30/16 07:10 11/30/16 07:10 11/30/16 11/30/16 11/30/16 07:10 07:10 07:10 WBC 6.9 RBC 4.00 Hgb 9.9 L Hct 30.6 L MCV 77 L MCH 24.7 L MCHC 32.3 RDW 16.4 H Plt Count 297 Seg Neutrophils % 90.6 H Lymphocytes % 8.2 L Monocytes % 1.1 L Eosinophils % 0.0 Basophils % 0.1 Absolute Neutrophils 6.2 Absolute Lymphocytes 0.6 Absolute Monocytes 0.1 Absolute Eosinophils 0.0 Absolute Basophils 0.0 VBG pH 7.40 VBG pCO2 43.4 VBG HCO3 26.0 VBG Base Excess 0.9 Sodium 142.7 Potassium 4.4 Chloride 108 H Carbon Dioxide 27 Anion Gap 8 BUN 15 Creatinine 0.44 L Est GFR ( Amer) > 60 Est GFR (Non-Af Amer) > 60 Glucose 150 H Calcium 8.8 Impressions: Chest X-Ray 11/29/16 18:37 IMPRESSION: Stable coarse interstitial/nodular changes throughout the lung snow, with known bronchiectasis. No new confluent infiltrates. Assessment & Plan - Diagnosis (1) Acute respiratory failure Qualifiers: Respiratory failure complication: hypoxia and hypercapnia Qualified Code(s): J96.01 - Acute respiratory failure with hypoxia; J96.02 - Acute respiratory failure with hypercapnia Is this a current diagnosis for this admission?: YesPlan: She required BIPAP therapy overnight due to hypoxemia, borderline hypercapnea and use of accessory muscles to breath. She appears improved at the present time (2) Pneumonia of right lung due to methicillin resistant Staphylococcus aureus ( MRSA) Qualifiers: Lung location: lower lobe of lung Qualified Code(s): J15.212 - Pneumonia due to Methicillin resistant Staphylococcus aureus Is this a current diagnosis for this admission?: YesPlan: Patient has history of MRSA pneumonia, she was mildly dehydrated on admission. Will recheck CXR and treat empirically for MRSA as well as pseudomonas that she has had in the past (3) Anxiety Is this a current diagnosis for this admission?: YesPlan: Continue prn anxiolytics (4) Pulmonary fibrosis Is this a current diagnosis for this admission?: YesPlan: Chronic, follows with Dr Yañez as outpatient continue current medications (5) COPD with exacerbation Is this a current diagnosis for this admission?: YesPlan: Continue current inhalers prn nebulizers (6) DNR (do not resuscitate) Is this a current diagnosis for this admission?: YesPlan: Patient and family request DNR status. They understand implications of this (7) DVT prophylaxis Is this a current diagnosis for this admission?: YesPlan: TEDS, heparin subcutanesouly - Time Time Spent with patient: 25-34 minutes Critical Time spent with patient: 15-24 minutes Medications reviewed and adjusted accordingly: Yes Anticipated discharge: Home with Homehealth
[2016-11-30] MEDS: VANCOMYCIN HCL 750 MG in DEXTROSE 5%-WATER 250 ML IV SCH (17:37)
[2016-11-30] MEDS: ACETYLCYSTEINE 20% SOLN 800 MG/4 ML VIAL.NEB NEB SCH (19:46)
[2016-11-30] MEDS: TOBRAMYCIN SULFATE NEB 40 MG/ML 30 ML NEB SCH (19:47)
[2016-11-30] MEDS: FLUTICASONE NASAL SPRAY 50 MCG/SPRY 120 SPRAY/16 GM NASL SCH (21:42)
[2016-11-30] MEDS: CEFEPIME HCL 2 GM in DEXTROSE 5%-WATER 50 ML IV SCH (21:42)
[2016-11-30] MEDS: SERTRALINE HCL 50 MG TABLET PO SCH (21:42)
[2016-11-30] MEDS ORDERED: SERTRALINE HCL 75 MG PO SCH (22:00)
[2016-11-30] MEDS: INSULIN LISPRO 100 UNIT/ML 3 ML VIAL SUBCUT PRN (22:35)
[2016-12-01] MEDS: METHYLPREDNISOLONE INJ 40 MG/1 ML SDV IV SCH (04:38)
[2016-12-01] MEDS: ACETAMINOPHEN 325 MG TABLET PO SCH ×3 (05:07→21:33)
[2016-12-01] MEDS: INSULIN LISPRO 100 UNIT/ML 3 ML VIAL SUBCUT PRN ×4 (08:42→22:16)
[2016-12-01] MEDS: NORMAL SALINE 1000 ML 1,000 ML IV PRN (08:42)
[2016-12-01] MEDS: ACETYLCYSTEINE 20% SOLN 800 MG/4 ML VIAL.NEB NEB SCH ×2 (08:58→20:14)
[2016-12-01] MEDS: IPRATROPIUM/ALBUTEROL 0.5-2.5 MG/3 ML AMPUL NEB SCH ×3 (08:58→20:15)
[2016-12-01] MEDS: TOBRAMYCIN SULFATE NEB 40 MG/ML 30 ML NEB SCH ×2 (08:58→20:14)
[2016-12-01] MEDS ORDERED: CALCIUM CARBONATE PO SCH (10:00)
[2016-12-01] MEDS ORDERED: [UNRECOGNIZED DRUG - OTHER] PO SCH (10:00)
[2016-12-01] MEDS ORDERED: VITAMIN D3 PO SCH (10:00)
[2016-12-01] MEDS: PREDNISONE 20 MG TABLET PO SCH (10:24)
[2016-12-01] MEDS: GUAIFENESIN 600 MG TABLET.SA PO PRN (10:24)
[2016-12-01] MEDS: FLUTICASONE NASAL SPRAY 50 MCG/SPRY 120 SPRAY/16 GM NASL SCH ×2 (10:24→21:33)
[2016-12-01] MEDS: MULTIVITAMIN TABLET PO SCH (10:24)
[2016-12-01] MEDS: CALCIUM CARBONATE 250 MG/VITAMIN D3 125 UNIT TABLET PO SCH (10:24)
[2016-12-01] MEDS: HEPARIN SOD (PORCINE) 5,000 UNIT/ML 1 ML SYRINGE SUBCUT SCH ×2 (10:24→21:33)
[2016-12-01] MEDS: LIDOCAINE 5% (700 MG) TRANSDERMAL ADH..PATCH TP SCH (10:29)
[2016-12-01] MEDS ORDERED: CARBOXYMETHYLCELLULOSE SOD 0.5% 0.4 ML DROPERETTE OU PRN (11:04)
--- NOTE | 2016-12-01 16:20 | PDOC PROGRESS REPORT ---
Subjective Progress Note for:: 12/01/16 Subjective:: Patient is seen on morning rounds. She is awake alert presently on BiPAP. She states she wants BiPAP mask off. We did remove the mask and placed her on nasal cannula at 3 L/m. She is oxygenating well at present time. She is no longer quite as dyspneic as she was when she presented to the hospital. She has a history of interstitial lung disease and chronic bronchiectasis. She states she became she became more dyspneic at home over the last 3 days. She's had a productive cough, increasing dyspnea, and chills. She denies any other symptoms at the present time. Physical Exam Vital Signs: Temp Pulse Resp BP Pulse Ox 97.3 F 107 H 19 152/64 H 98 12/01/16 15:50 12/01/16 15:50 12/01/16 15:50 12/01/16 15:50 12/01/16 15:50 Intake & Output 11/30/16 12/01/16 12/02/16 06:59 06:59 06:59 Intake Total 2031 Balance 196 2031 General appearance: PRESENT: no acute distress, thin, well-developed Eye exam: PRESENT: conjunctiva pink, EOMI, PERRLA. ABSENT: scleral icterus Ear exam: PRESENT: normal external ear exam Mouth exam: PRESENT: moist, tongue midline Neck exam: ABSENT: carotid bruit, JVD, lymphadenopathy, thyromegaly Respiratory exam: PRESENT: crackles - expiratory crackles bilaterally, symmetrical, tachypnea Cardiovascular exam: PRESENT: RRR. ABSENT: diastolic murmur, rubs, systolic murmur Pulses: PRESENT: normal dorsalis pedis pul Vascular exam: PRESENT: normal capillary refill GI/Abdominal exam: PRESENT: normal bowel sounds, soft. ABSENT: distended, guarding, mass, organolmegaly, rebound, tenderness Rectal exam: PRESENT: deferred Extremities exam: PRESENT: full ROM. ABSENT: calf tenderness, clubbing, pedal edema Neurological exam: PRESENT: alert, awake, oriented to person, oriented to place , oriented to time, oriented to situation, CN II-XII grossly intact. ABSENT: motor sensory deficit Psychiatric exam: PRESENT: appropriate affect, normal mood. ABSENT: homicidal ideation, suicidal ideation Skin exam: PRESENT: dry, intact, warm. ABSENT: cyanosis, rash Results Laboratory Results: 11/30/16 07:10 11/30/16 07:10 Impressions: Chest X-Ray 11/29/16 18:37 IMPRESSION: Stable coarse interstitial/nodular changes throughout the lung snow, with known bronchiectasis. No new confluent infiltrates. Assessment & Plan - Diagnosis (1) Acute respiratory failure Qualifiers: Respiratory failure complication: hypoxia and hypercapnia Qualified Code(s): J96.01 - Acute respiratory failure with hypoxia Is this a current diagnosis for this admission?: YesPlan: She required BIPAP therapy intitially overnight due to hypoxemia, borderline hypercapnea and use of accessory muscles to breath. She has not needed it since that time. She appears improved at the present time (2) Pneumonia of right lung due to methicillin resistant Staphylococcus aureus ( MRSA) Qualifiers: Lung location: lower lobe of lung Qualified Code(s): J15.212 - Pneumonia due to Methicillin resistant Staphylococcus aureus Is this a current diagnosis for this admission?: YesPlan: Patient has history of MRSA pneumonia, she was mildly dehydrated on admission. Will recheck CXR and treat empirically for MRSA as well as pseudomonas that she has had in the past (3) Anxiety Is this a current diagnosis for this admission?: YesPlan: Continue prn anxiolytics (4) Pulmonary fibrosis Is this a current diagnosis for this admission?: YesPlan: Chronic, follows with Dr Yañez as outpatient continue current medications (5) COPD with exacerbation Is this a current diagnosis for this admission?: YesPlan: Continue current inhalers prn nebulizers (6) DNR (do not resuscitate) Is this a current diagnosis for this admission?: YesPlan: Patient and family request DNR status. They understand implications of this (7) DVT prophylaxis Is this a current diagnosis for this admission?: YesPlan: TEDS, heparin subcutanesouly - Time Time Spent with patient: 25-34 minutes Critical Time spent with patient: 15-24 minutes Medications reviewed and adjusted accordingly: Yes Anticipated discharge: Home with Homehealth
[2016-12-01] MEDS: VANCOMYCIN HCL 750 MG in DEXTROSE 5%-WATER 250 ML IV SCH (18:36)
[2016-12-01] MEDS: SERTRALINE HCL 50 MG TABLET PO SCH (21:33)
[2016-12-01] MEDS: CEFEPIME HCL 2 GM in DEXTROSE 5%-WATER 50 ML IV SCH (21:33)
[2016-12-02] MEDS: ACETAMINOPHEN 325 MG TABLET PO SCH ×3 (05:12→21:43)
[2016-12-02 06:18] LABS: ABSOLUTE BASOPHILS # (AUTO) 0.1 10^3/uL (0.0-0.2); ABSOLUTE LYMPHOCYTES (AUTO) 3.2 10^3/uL (0.5-4.7); ABSOLUTE MONOCYTES (AUTO) 1.7 10^3/uL (0.1-1.4); ABSOLUTE NEUT (AUTO) 10.3 10^3/uL (1.7-8.2); BASOPHILS % (AUTO) 0.5 % (0-2); HEMATOCRIT 33.2 % (36.0-47.0); HEMOGLOBIN 10.5 g/dL (12.0-15.5); HGB HCT DIFFERENCE -1.7; LYMPHOCYTES % (AUTO) 20.8 % (13-45); MEAN CORPUSCULAR HEMOGLOBIN 24.2 pg (27.0-33.4); MEAN CORPUSCULAR HGB CONC 31.7 g/dL (32.0-36.0); MEAN CORPUSCULAR VOLUME 76 fl (80-97); MONOCYTES % (AUTO) 11.2 % (3-13); RED BLOOD COUNT 4.35 10^6/uL (3.72-5.28); RED CELL DISTRIBUTION WIDTH 16.5 % (11.5-14.0); SEGMENTED NEUTROPHILS % (AUTO) 67.5 % (42-78)
[2016-12-02 06:29] LABS: WHITE BLOOD COUNT 15.3 10^3/uL (4.0-10.5)
[2016-12-02 06:37] LABS: ANION GAP 9 (5-19); BLOOD UREA NITROGEN 20 mg/dL (7-20); CALCIUM 9.2 mg/dL (8.4-10.2); CARBON DIOXIDE 26 mmol/L (22-30); CHLORIDE 106 mmol/L (98-107); GLUCOSE 81 mg/dL (75-110); POTASSIUM 4.2 mmol/L (3.6-5.0)
[2016-12-02] MEDS: IPRATROPIUM/ALBUTEROL 0.5-2.5 MG/3 ML AMPUL NEB SCH ×3 (08:30→19:03)
[2016-12-02] MEDS: TOBRAMYCIN SULFATE NEB 40 MG/ML 30 ML NEB SCH ×2 (08:30→19:04)
[2016-12-02] MEDS: ACETYLCYSTEINE 20% SOLN 800 MG/4 ML VIAL.NEB NEB SCH ×2 (08:31→19:04)
[2016-12-02] MEDS ORDERED: BENZONATATE 100 MG CAPSULE PO PRN (09:50)
[2016-12-02] MEDS: LIDOCAINE 5% (700 MG) TRANSDERMAL ADH..PATCH TP SCH (10:10)
[2016-12-02] MEDS: GUAIFENESIN 600 MG TABLET.SA PO PRN (11:17)
[2016-12-02] MEDS: PREDNISONE 20 MG TABLET PO SCH (11:17)
[2016-12-02] MEDS: HEPARIN SOD (PORCINE) 5,000 UNIT/ML 1 ML SYRINGE SUBCUT SCH ×2 (11:17→21:42)
[2016-12-02] MEDS: CALCIUM CARBONATE 250 MG/VITAMIN D3 125 UNIT TABLET PO SCH (11:18)
[2016-12-02] MEDS: MULTIVITAMIN TABLET PO SCH (11:18)
[2016-12-02] MEDS: FLUTICASONE NASAL SPRAY 50 MCG/SPRY 120 SPRAY/16 GM NASL SCH ×2 (11:18→21:43)
[2016-12-02] MEDS: INSULIN LISPRO 100 UNIT/ML 3 ML VIAL SUBCUT PRN ×3 (11:53→22:17)
--- NOTE | 2016-12-02 13:39 | PDOC PROGRESS REPORT ---
Subjective Progress Note for:: 12/02/16 Subjective:: Patient is seen on morning rounds. She is awake alert presently resting in bed She is feeling better. Her cough remains nonproductive. She is oxygenating well at present time. She is no longer quite as dyspneic as she was when she presented to the hospital. She has a history of interstitial lung disease and chronic bronchiectasis. She states she did not sleep well last night. She denies any other symptoms at the present time. Physical Exam Vital Signs: Temp Pulse Resp BP Pulse Ox 97.5 F 104 H 22 H 145/62 H 96 12/02/16 07:00 12/02/16 11:46 12/02/16 11:46 12/02/16 11:46 12/02/16 11:46 Intake & Output 12/01/16 12/02/16 12/03/16 06:59 06:59 06:59 Intake Total 2031 830 Balance 2031 830 Weight 41.7 kg General appearance: PRESENT: no acute distress, thin, well-developed Head exam: PRESENT: atraumatic, normocephalic Eye exam: PRESENT: conjunctiva pink, EOMI, PERRLA. ABSENT: scleral icterus Ear exam: PRESENT: normal external ear exam Mouth exam: PRESENT: moist, tongue midline Neck exam: ABSENT: carotid bruit, JVD, lymphadenopathy, thyromegaly Respiratory exam: PRESENT: crackles - bilaterally, symmetrical, tachypnea Cardiovascular exam: PRESENT: RRR. ABSENT: diastolic murmur, rubs, systolic murmur Pulses: PRESENT: normal dorsalis pedis pul Vascular exam: PRESENT: normal capillary refill GI/Abdominal exam: PRESENT: normal bowel sounds, soft. ABSENT: distended, guarding, mass, organolmegaly, rebound, tenderness Rectal exam: PRESENT: deferred Extremities exam: PRESENT: full ROM. ABSENT: calf tenderness, clubbing, pedal edema Neurological exam: PRESENT: alert, awake, oriented to person, oriented to place , oriented to time, oriented to situation, CN II-XII grossly intact. ABSENT: motor sensory deficit Psychiatric exam: PRESENT: appropriate affect, normal mood. ABSENT: homicidal ideation, suicidal ideation Skin exam: PRESENT: dry, intact, warm. ABSENT: cyanosis, rash Results Laboratory Results: 12/02/16 05:21 12/02/16 05:21 12/02/16 12/02/16 05:21 05:21 WBC 15.3 H D RBC 4.35 Hgb 10.5 L Hct 33.2 L MCV 76 L MCH 24.2 L MCHC 31.7 L RDW 16.5 H Plt Count 308 Seg Neutrophils % 67.5 Lymphocytes % 20.8 Monocytes % 11.2 Eosinophils % 0.0 Basophils % 0.5 Absolute Neutrophils 10.3 H Absolute Lymphocytes 3.2 Absolute Monocytes 1.7 H Absolute Eosinophils 0.0 Absolute Basophils 0.1 Sodium 141.0 Potassium 4.2 Chloride 106 Carbon Dioxide 26 Anion Gap 9 BUN 20 Creatinine 0.50 L Est GFR ( Amer) > 60 Est GFR (Non-Af Amer) > 60 Glucose 81 Calcium 9.2 Impressions: Chest X-Ray 11/29/16 18:37 IMPRESSION: Stable coarse interstitial/nodular changes throughout the lung snow, with known bronchiectasis. No new confluent infiltrates. Assessment & Plan - Diagnosis (1) Acute respiratory failure Qualifiers: Respiratory failure complication: hypoxia and hypercapnia Qualified Code(s): J96.01 - Acute respiratory failure with hypoxia Is this a current diagnosis for this admission?: YesPlan: She required BIPAP therapy intitially overnight due to hypoxemia, borderline hypercapnea and use of accessory muscles to breath. She has not needed it since that time. She appears improved at the present time (2) Pneumonia of right lung due to methicillin resistant Staphylococcus aureus ( MRSA) Qualifiers: Lung location: lower lobe of lung Qualified Code(s): J15.212 - Pneumonia due to Methicillin resistant Staphylococcus aureus Is this a current diagnosis for this admission?: YesPlan: Patient has history of MRSA pneumonia, she was mildly dehydrated on admission. Will recheck CXR and treat empirically for MRSA as well as pseudomonas that she has had in the past (3) Anxiety Is this a current diagnosis for this admission?: YesPlan: Continue prn anxiolytics (4) Pulmonary fibrosis Is this a current diagnosis for this admission?: YesPlan: Chronic, follows with Dr Yañez as outpatient continue current medications (5) COPD with exacerbation Is this a current diagnosis for this admission?: YesPlan: Continue current inhalers prn nebulizers (6) DNR (do not resuscitate) Is this a current diagnosis for this admission?: YesPlan: Patient and family request DNR status. They understand implications of this (7) DVT prophylaxis Is this a current diagnosis for this admission?: Yes - Time Time Spent with patient: 25-34 minutes Critical Time spent with patient: 15-24 minutes Medications reviewed and adjusted accordingly: Yes Anticipated discharge: Home with Homehealth - Inpatient Certification Based on my medical assessment, after consideration of the patient's comorbidities, presenting symptoms, or acuity I expect that the services needed warrant INPATIENT care.: Yes I certify that my determination is in accordance with my understanding of Medicare's requirements for reasonable and necessary INPATIENT services [42 CFR 412.3e].: Yes
[2016-12-02] MEDS: VANCOMYCIN HCL 750 MG in DEXTROSE 5%-WATER 250 ML IV SCH (17:48)
[2016-12-02 18:10] LABS: TROUGH DRAW TIME 1743
[2016-12-02] MEDS: SERTRALINE HCL 50 MG TABLET PO SCH (21:43)
[2016-12-02] MEDS: CEFEPIME HCL 2 GM in DEXTROSE 5%-WATER 50 ML IV SCH (21:43)
[2016-12-02] MEDS: MIRTAZAPINE 15 MG TABLET PO SCH (21:43)
[2016-12-03] MEDS: ACETAMINOPHEN 325 MG TABLET PO SCH ×3 (05:43→23:04)
[2016-12-03] MEDS ORDERED: VANCOMYCIN HCL 500 MG in DEXTROSE 5%-WATER 100 ML IV SCH (06:00)
[2016-12-03] MEDS: ACETYLCYSTEINE 20% SOLN 800 MG/4 ML VIAL.NEB NEB SCH ×2 (09:13→20:44)
[2016-12-03] MEDS: IPRATROPIUM/ALBUTEROL 0.5-2.5 MG/3 ML AMPUL NEB SCH ×3 (09:14→20:44)
[2016-12-03] MEDS: TOBRAMYCIN SULFATE NEB 40 MG/ML 30 ML NEB SCH ×2 (09:14→20:44)
[2016-12-03] MEDS: CALCIUM CARBONATE 250 MG/VITAMIN D3 125 UNIT TABLET PO SCH (10:18)
[2016-12-03] MEDS: PREDNISONE 20 MG TABLET PO SCH (10:18)
[2016-12-03] MEDS: MULTIVITAMIN TABLET PO SCH (10:19)
[2016-12-03] MEDS: FLUTICASONE NASAL SPRAY 50 MCG/SPRY 120 SPRAY/16 GM NASL SCH ×2 (10:20→21:48)
[2016-12-03] MEDS: HEPARIN SOD (PORCINE) 5,000 UNIT/ML 1 ML SYRINGE SUBCUT SCH ×2 (10:20→21:47)
[2016-12-03] MEDS: LIDOCAINE 5% (700 MG) TRANSDERMAL ADH..PATCH TP SCH (10:21)
[2016-12-03] MEDS ORDERED: PREDNISONE 20 MG TABLET PO SCH (10:45)
[2016-12-03] MEDS: GUAIFENESIN 600 MG TABLET.SA PO PRN (10:50)
[2016-12-03] MEDS ORDERED: LEVOFLOXACIN 500 MG TABLET PO ONE (11:30)
--- NOTE | 2016-12-03 15:38 | PDOC PROGRESS REPORT ---
Subjective Progress Note for:: 12/03/16 Subjective:: Patient is seen on morning rounds. She is awake alert presently resting in bed She is feeling better. Her cough remains nonproductive. She is oxygenating well at present time. She is no longer quite as dyspneic as she was when she presented to the hospital. She has a history of interstitial lung disease and chronic bronchiectasis. She states she slept well last night. She denies any other symptoms at the present time. Physical Exam Vital Signs: Temp Pulse Resp BP Pulse Ox 98.1 F 80 16 128/59 H 97 12/03/16 11:36 12/03/16 14:17 12/03/16 14:17 12/03/16 11:36 12/03/16 14:17 Intake & Output 12/02/16 12/03/16 12/04/16 06:59 06:59 06:59 Intake Total 830 1090 Output Total 800 Balance 830 290 Weight 41.7 kg 41.7 kg General appearance: PRESENT: no acute distress, thin, well-developed Head exam: PRESENT: atraumatic, normocephalic Eye exam: PRESENT: conjunctiva pink, EOMI, PERRLA. ABSENT: scleral icterus Ear exam: PRESENT: normal external ear exam Mouth exam: PRESENT: moist, tongue midline Neck exam: ABSENT: carotid bruit, JVD, lymphadenopathy, thyromegaly Respiratory exam: PRESENT: crackles, decreased breath sounds. ABSENT: rales, rhonchi, wheezes Cardiovascular exam: PRESENT: RRR. ABSENT: diastolic murmur, rubs, systolic murmur Pulses: PRESENT: normal dorsalis pedis pul Vascular exam: PRESENT: normal capillary refill GI/Abdominal exam: PRESENT: normal bowel sounds, soft. ABSENT: distended, guarding, mass, organolmegaly, rebound, tenderness Rectal exam: PRESENT: deferred Extremities exam: PRESENT: full ROM. ABSENT: calf tenderness, clubbing, pedal edema Neurological exam: PRESENT: alert, awake, oriented to person, oriented to place , oriented to time, oriented to situation, CN II-XII grossly intact. ABSENT: motor sensory deficit Psychiatric exam: PRESENT: appropriate affect, normal mood. ABSENT: homicidal ideation, suicidal ideation Skin exam: PRESENT: dry, intact, warm. ABSENT: cyanosis, rash Results Laboratory Results: 12/02/16 05:21 12/02/16 05:21 Impressions: Chest X-Ray 11/29/16 18:37 IMPRESSION: Stable coarse interstitial/nodular changes throughout the lung snow, with known bronchiectasis. No new confluent infiltrates. Assessment & Plan - Diagnosis (1) Acute respiratory failure Qualifiers: Respiratory failure complication: hypoxia and hypercapnia Qualified Code(s): J96.01 - Acute respiratory failure with hypoxia Is this a current diagnosis for this admission?: YesPlan: She required BIPAP therapy intitially overnight due to hypoxemia, borderline hypercapnea and use of accessory muscles to breath. She has not needed it since that time. She appears improved at the present time (2) Pneumonia of right lung due to methicillin resistant Staphylococcus aureus ( MRSA) Qualifiers: Lung location: lower lobe of lung Qualified Code(s): J15.212 - Pneumonia due to Methicillin resistant Staphylococcus aureus Is this a current diagnosis for this admission?: YesPlan: Patient has history of MRSA pneumonia, she was mildly dehydrated on admission. Will recheck CXR and treat empirically for MRSA as well as pseudomonas that she has had in the past (3) Anxiety Is this a current diagnosis for this admission?: YesPlan: Continue prn anxiolytics (4) Pulmonary fibrosis Is this a current diagnosis for this admission?: YesPlan: Chronic, follows with Dr Yañez as outpatient continue current medications (5) COPD with exacerbation Is this a current diagnosis for this admission?: YesPlan: Continue current inhalers prn nebulizers (6) DNR (do not resuscitate) Is this a current diagnosis for this admission?: YesPlan: Patient and family request DNR status. They understand implications of this (7) DVT prophylaxis Is this a current diagnosis for this admission?: Yes - Time Time Spent with patient: 25-34 minutes Critical Time spent with patient: 15-24 minutes Anticipated discharge: Home with Homehealth Within: within 24 hours
[2016-12-03] MEDS: SERTRALINE HCL 50 MG TABLET PO SCH (21:43)
[2016-12-03] MEDS: MIRTAZAPINE 15 MG TABLET PO SCH (21:43)
[2016-12-03] MEDS: INSULIN LISPRO 100 UNIT/ML 3 ML VIAL SUBCUT PRN (21:47)
[2016-12-04] MEDS: ACETAMINOPHEN 325 MG TABLET PO SCH (07:01)
[2016-12-04] MEDS: IPRATROPIUM/ALBUTEROL 0.5-2.5 MG/3 ML AMPUL NEB SCH ×2 (08:28→15:24)
[2016-12-04] MEDS: TOBRAMYCIN SULFATE NEB 40 MG/ML 30 ML NEB SCH (08:28)
[2016-12-04] MEDS: ACETYLCYSTEINE 20% SOLN 800 MG/4 ML VIAL.NEB NEB SCH (08:28)
[2016-12-04] MEDS: HEPARIN SOD (PORCINE) 5,000 UNIT/ML 1 ML SYRINGE SUBCUT SCH (09:54)
[2016-12-04] MEDS: CALCIUM CARBONATE 250 MG/VITAMIN D3 125 UNIT TABLET PO SCH (09:55)
[2016-12-04] MEDS: FLUTICASONE NASAL SPRAY 50 MCG/SPRY 120 SPRAY/16 GM NASL SCH (09:55)
[2016-12-04] MEDS: GUAIFENESIN 600 MG TABLET.SA PO PRN (09:56)
[2016-12-04] MEDS: MULTIVITAMIN TABLET PO SCH (09:56)
[2016-12-04] MEDS: LIDOCAINE 5% (700 MG) TRANSDERMAL ADH..PATCH TP SCH (09:57)
[2016-12-04] MEDS ORDERED: LEVOFLOXACIN 250 MG TABLET PO SCH (10:00)
[2016-12-04] MEDS ORDERED: PREDNISONE 20 MG TABLET PO SCH (10:00)
--- NOTE | 2016-12-04 12:22 | PDOC DISCHARGE SUMMARY ---
General - Admit/Disc Date/PCP Admission Date/Primary Care Provider: 11/30/16 02:46 RAMIREZ NAVARRO Discharge Date: 12/04/16 - Discharge Diagnosis (1) Acute respiratory failure Is this a current diagnosis for this admission?: YesSummary: Most likely secondary to bronchitis. Improved to baseline oxygen requirements. Chest xray showed only chronic changes. Blood cultures remained negative. Cough non productive (2) Anxiety Is this a current diagnosis for this admission?: Yes (3) Pulmonary fibrosis Is this a current diagnosis for this admission?: YesSummary: Patient with known history of worsening pulmonary fibrosis and bronchiectasis. Patient and granddaughter are aware of poor long trem prognosis (4) COPD with exacerbation Is this a current diagnosis for this admission?: YesSummary: Continue current inhalers and nebulizer treatments. Prednisone taper over the next 3 days (5) DNR (do not resuscitate) Is this a current diagnosis for this admission?: YesSummary: Patient understands the ramifications of this. Out of hospital DNR also down (6) DVT prophylaxis Is this a current diagnosis for this admission?: No (7) UTI (urinary tract infection) Is this a current diagnosis for this admission?: YesSummary: Continue for 3 more days - Additional Information Resuscitation Status: Do Not Resuscitate Discharge Activity: Activity As Tolerated, Balance Activity w/Rest Home Medications: Benzonatate [Tessalon Perles 100 mg Capsule] 100 mg PO TIDP PRN 11/30/16 Fluticasone Propionate [Flonase Nasal Whitefield 50 Mcg/Whitefield 16 gm] 2 spray NASL Q12 11/30/16 Guaifenesin [Mucinex Sr 600 mg Tablet.sa] 600 mg PO DAILY 11/30/16 Guaifenesin [Robitussin Syrup 200 mg/10 ml Ud Cup] 200 mg PO QIDP PRN 11/30/16 Ipratropium/Albuterol Sulfate [Iprat-Albut 0.5-3(2.5) mg/3 ml] 3 ml NEB Q6HP PRN 11/30/16 Mirtazapine [Remeron 15 mg Tablet] 15 mg PO QHS 11/30/16 Multivitamin [Multivitamins] 1 each PO DAILY 11/30/16 Propylene Glycol/Peg 400/Pf [Systane 0.3-0.4% Eye Drops] 1 each OU HSP PRN 11/30 Acetaminophen [Tylenol 325 mg Tablet] 975 mg PO Q8 tablet 12/04/16 Calcium Carbonate/Vitamin D3 [Os-Samuel 250 mg with Vitamin D 125 Units] 2 tab PO DAILY tablet 12/04/16 Carboxymethylcellulose Sodium [Refresh Plus 0.5% Oph Soln 0.4 ml Droperette] 1 drop OU HSP PRN droperette 12/04/16 Fluticasone Propionate [Flonase Nasal Whitefield 50 Mcg/Whitefield 16 gm] 2 spray NASL Q12 spray.pump 12/04/16 Guaifenesin [Mucinex Sr 600 mg Tablet.sa] 600 mg PO DAILY PRN tablet.sa Levofloxacin [Levaquin 250 mg Tablet] 250 mg PO DAILY #5 tablet 12/04/16 Prednisone [Deltasone 20 mg Tablet] 20 mg PO DAILY #3 tablet 12/04/16 History of Present Illness Patient complains of: Worsening shortness of breath and weakness History of Present Illness: SANG CHOW is a 86 year old female who is well known to our service from previous admissions. She has a history of pulmonary fibrosis and bronchiectasis on home oxygen. She presented with worsening shortness of breath and generalized weakness over a 3 day period. She denied any fevers or chills . Her cough was nonproductive. Chest xray done in the ED showed only chronic changes. ABG showed mild hypercapnea. She was placed on BIPAP , started on empiric broad spectrum antibiotics and referred the hospitalist service for admission. She was seen by Dr Perez and admitted to the telemetry floor Hospital Course Hospital Course: She was able to be weaned off the BIPAP the following morning. She was receiving IV antibiotics, nebulizer treatments and IV steroids. Her respiratory status improved over the next 2 days. Her cough remained nonproductive and wheezing resolved. She was found to have a UTI by culture. She increased her activity and was able to ambuate with assistance of a walker and portable oxygen. Her steroids have been tapered. She is feeling back to baseline. She feels ready to go home. Discharge planning was consulted and patient will go home with home health. Physical Exam Vital Signs: Temp Pulse Resp BP Pulse Ox 98.5 F 97 16 116/48 L 98 12/04/16 11:08 12/04/16 11:08 12/04/16 11:08 12/04/16 11:08 12/04/16 11:08 Intake & Output 12/03/16 12/04/16 12/05/16 06:59 06:59 06:59 Intake Total 1090 1411 355 Output Total 800 Balance 290 1411 355 Weight 41.7 kg 41.7 kg General appearance: PRESENT: no acute distress, thin, well-developed Head exam: PRESENT: atraumatic, normocephalic Eye exam: PRESENT: conjunctiva pink, EOMI, PERRLA. ABSENT: scleral icterus Ear exam: PRESENT: normal external ear exam Mouth exam: PRESENT: moist, tongue midline Neck exam: ABSENT: carotid bruit, JVD, lymphadenopathy, thyromegaly Respiratory exam: PRESENT: crackles - bilaterally, symmetrical, tachypnea Cardiovascular exam: PRESENT: RRR. ABSENT: diastolic murmur, rubs, systolic murmur Pulses: PRESENT: normal dorsalis pedis pul Vascular exam: PRESENT: normal capillary refill GI/Abdominal exam: PRESENT: normal bowel sounds, soft. ABSENT: distended, guarding, mass, organolmegaly, rebound, tenderness Rectal exam: PRESENT: deferred Extremities exam: PRESENT: full ROM. ABSENT: calf tenderness, clubbing, pedal edema Neurological exam: PRESENT: alert, awake, oriented to person, oriented to place , oriented to time, oriented to situation, CN II-XII grossly intact. ABSENT: motor sensory deficit Psychiatric exam: PRESENT: appropriate affect, normal mood. ABSENT: homicidal ideation, suicidal ideation Skin exam: PRESENT: dry, intact, warm. ABSENT: cyanosis, rash Results Laboratory Results: 12/02/16 05:21 12/02/16 05:21 Impressions: Chest X-Ray 11/29/16 18:37 IMPRESSION: Stable coarse interstitial/nodular changes throughout the lung snow, with known bronchiectasis. No new confluent infiltrates. Qualifiers PATEINT BEING DISCHARGED WITH ANY OF THE FOLLOWING DIAGNOSIS?: No Plan Discharge Plan: home with family and home health Time Spent: Less than 30 Minutes
[2016-12-04 12:46] VITALS: BP 127/51
== END 2016-12-04 15:56 | disposition home health service (06) | DRG 189 ==
LOC: ER 18:30 → EH 21:48 → UNDOADMIN 21:48 → EH 11-30 00:35 → 4W 11-30 00:35 → EH 11-30 02:46 → 4W 11-30 02:46 → 4S 12-01 15:34
PROVIDERS: ADMIT Family Medicine; ATTEND Family Medicine
DX: J96.22 Acute and chronic respiratory failure with hypercapnia (principal); J15.212 Pneumonia due to Methicillin resistant Staphylococcus aureus; J44.1 Chronic obstructive pulmonary disease with (acute) exacerbation; Z68.1 Body mass index [BMI] 19.9 or less, adult; Z66 Do not resuscitate; E11.9 Type 2 diabetes mellitus without complications; J84.10 Pulmonary fibrosis, unspecified; E86.0 Dehydration; F41.9 Anxiety disorder, unspecified; M19.90 Unspecified osteoarthritis, unspecified site; R54 Age-related physical debility; Z86.14 Personal history of Methicillin resistant Staphylococcus aureus infection
CPT/HCPCS: 36415; 71010; 80048; 80053; 80202; 81001; 82803; 82962; 83605; 85025; 85610; 87040; 87086; 87088; 87186; 93005; 93010; 94640; 94660; 94799; 96365; 96368; 96375; 99285; J0692; J1644; J1815; J1956; J2060; J2920; J2930; J3370; J3475; J3490; J7030; J7060; J7512; J7620; J7685

== ENCOUNTER 2016-12-16 21:58 | Observation (INO) | payer MEDICARE ==
[2016-12-16] MEDS ORDERED: LORAZEPAM 0.5 MG TABLET ONE (22:36)
[2016-12-16] MEDS ORDERED: LORAZEPAM 0.5 MG TABLET PO ONE (22:38)
--- NOTE | 2016-12-16 22:39 | ER Document Report ---
[id number] 4d Patient, Relative - Granddaughter TRAVEL OUTSIDE OF THE [place] IN LAST 30 DAYS: No - HPI Patient complains to provider of: Short of breath Onset: Other - 3 days ago Duration: Worse/persistent Initiating Event: Other - Pulmonary fibrosis Associated symptoms: Anxiety, Chills, Short of breath <TAD MARTINEZ - Last Filed: 12/16/16 23:31> <GENARO GRIFFINMY - Last Filed: 12/20/16 13:25> - General Chief Complaint: Shortness Of Breath Stated Complaint: DIFFICULTY BREATHING Notes: Patient is an 86-year-old female presenting to the emergency department concerned of difficulty breathing over the past few days. Patient was discharged from here on Dec 04, 2016 with Levaquin and a round of steroids, but over the past few days she has developed fever, chills, and her breathing has progressively worsened. Patient's grandmother states that the patient has gotten the flu and pneumonia vaccination. Patient is regularly on 2 L of oxygen at home. Patient has a history of panic attacks, and patient's granddaughter states that the patient takes Xanax 1 time daily. Patient's granddaughter mentions that the patient has been requesting more Xanax than prescribed recently. Patient's executive recruiter is Dr. Yañez. (TAD MARTINEZ) - Related Data Allergies/Adverse Reactions: No Known Allergies Allergy (Verified 11/29/16 18:35) Home Medications: Current Home Medications Budesonide/Formoterol Fumarate [Symbicort HFA 160-4.5 mcg Inhaler 6 gm] 2 puff IH BID 12/17/16 [History] Mirtazapine [Remeron 15 mg Tablet] 15 mg PO QHS 12/17/16 [History] Past Medical History - General Information source: Patient, Relative - Granddaughter - Social History Smoking Status: Former Smoker Chew tobacco use (# tins/day): No Frequency of alcohol use: None Drug Abuse: None Family History: None, Reviewed & Not Pertinent Patient has suicidal ideation: No Patient has homicidal ideation: No Pulmonary Medical History: Reports: Hx Asthma, Hx COPD, Hx Pneumonia, Other - Pulmonary fibrosis Neurological Medical History: Denies: Hx Seizures Endocrine Medical History: 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 Denies: Hx Diabetes Mellitus Type 1, Hx Hyperthyroidism , Hx Hypothyroidism Renal/ Medical History: Denies: Hx Peritoneal Dialysis GI Medical History: Denies: Hx Cirrhosis, Hx Gastroesophageal Reflux Disease, Hx Hepatitis Musculoskeltal Medical History: Denies Hx Arthritis Psychiatric Medical History: Reports: Hx Anxiety, Hx Depression Infectious Medical History: Reports: Hx MRSA. Denies: Hx Hepatitis Past Surgical History: Reports: Hx Cholecystectomy - Immunizations Hx Diphtheria, Pertussis, Tetanus Vaccination: Yes Hx Pneumococcal Vaccination: 07/31/15 <TAD MARTINEZ - Last Filed: 12/16/16 23:31> Review of Systems - Review of Systems Constitutional: See HPI, Chills, Fever EENT: No symptoms reported Cardiovascular: No symptoms reported Respiratory: See HPI, Short of breath, Other - Difficulty breathing Gastrointestinal: No symptoms reported Genitourinary: No symptoms reported Female Genitourinary: No symptoms reported Musculoskeletal: No symptoms reported Skin: No symptoms reported Hematologic/Lymphatic: No symptoms reported Neurological/Psychological: No symptoms reported -: Yes All other systems reviewed and negative <TAD MARTINEZ - Last Filed: 12/16/16 23:31> Physical Exam <TAD MARTINEZ - Last Filed: 12/16/16 23:31> <MONICA GRIFFIN - Last Filed: 12/20/16 13:25> - Vital signs Vitals: Temp Pulse Resp BP Pulse Ox 99.7 F 132 H 26 H 157/68 H 91 L 12/16/16 22:09 12/16/16 22:09 12/16/16 22:09 12/16/16 22:09 12/16/16 22:09 (TAD MARTINEZ) (MONICA GRIFFIN) - Notes Notes: GENERAL: Alert, cachectic, interacts well. HEAD: Normocephalic, atraumatic. EYES: Pupils equal, round, and reactive to light. Extraocular movements intact. ENT: Oral mucosa moist, tongue midline. NECK: Full range of motion. Supple. Trachea midline. LUNGS: Lung sounds consistent with pulmonary fibrosis. Tachypnic. HEART: Tachycardic. No murmurs, gallops, or rubs. ABDOMEN: Soft, non-tender. Non-distended. Bowel sounds present in all 4 quadrants. EXTREMITIES: Moves all 4 extremities spontaneously. No edema, radial and dorsalis pedis pulses 2/4 bilaterally. No cyanosis. NEUROLOGICAL: Alert and oriented x3. Normal speech. PSYCH: Normal affect, normal mood. SKIN: Warm, dry, normal turgor. No rashes or lesions noted. (TAD MARTINEZ) Course - Laboratory Result Diagrams: 12/16/16 22:55 12/16/16 22:55 - Consults Dr. Leos Time consulted: 23:31 <TAD MARTINEZ - Last Filed: 12/16/16 23:31> - Laboratory Result Diagrams: 12/17/16 08:06 12/17/16 08:06 <MONICA GRIFFIN - Last Filed: 12/20/16 13:25> - Re-evaluation Re-evalutation: 12/16/16 23:35 I personally performed the services described in the documentation, reviewed and edited the documentation which was dictated to my scribe in my presence, and it accurately records my words and actions. Patient presents in December, difficulty breathing. Patient has end-stage pulmonary fibrosis is DNR and chronically on 3 L of oxygen at home. Granddaughter who lives at the patient's had increased shortness of breath tonight she also has a history of panic attacks but can't decipher which one is going on at this point she only takes Xanax once a day at night but hasn't taken it today. Increased shortness of breath since this afternoon O2 sat 91% on 3 L which she is on at home tachypneic and tachycardic on arrival. Review her records show that she is admitted on 131 with concerns for pneumonia COPD exacerbation was placed on BiPAP she was discharged on 24 with bronchitis the cultures were negative she never had pneumonia but was diagnosed with bronchitis. Granddaughter states that she is chronically short of breath at home also a lot of anxiety lungs lungs exam are consistent with end-stage pulmonary fibrosis no acute pneumonia ABG is 7.4 PO2 61.3 and bicarbonate of 27. Patient not requiring intervention from a BiPAP standpoint. Gave her Solu- Medrol she had breathing treatments before she got here she is not wheezing. medical concerns for pulmonary embolus. Spoke with Dr. Cruz's can admit patient to telemetry observation. (MONICA GRIFFIN) - Vital Signs Vital signs: Temp Pulse Resp BP Pulse Ox 97.3 F 103 H 22 H 130/65 H 100 12/18/16 11:04 12/18/16 11:04 12/18/16 11:04 12/18/16 11:04 12/18/16 11:04 (TDA MARTINEZ) (MONICA GRIFFIN) - Laboratory Laboratory results interpreted by me: 12/16/16 12/16/16 22:40 22:55 WBC 11.4 H Hgb 11.0 L Hct 35.1 L MCV 78 L MCH 24.6 L MCHC 31.4 L RDW 16.5 H Plt Count 454 H Seg Neutrophils % 80.2 H Lymphocytes % 8.3 L Absolute Neutrophils 9.1 H ABG pH 7.48 H ABG pO2 61.3 L ABG HCO3 27.0 H ABG Total CO2 28.2 H ABG O2 Saturation 93.1 L (MONICA GRIFFIN) - Consults Dr. Leos Reason for consultation: 12/16/16 23:34 Discussed patient's case with Dr. Leos. (TAD MARTINEZ) Critical Care Note - Critical Care Note Total time excluding time spent on procedures (mins): 60 <MONICA GRIFFIN - Last Filed: 12/20/16 13:25> Discharge <TAD MARTINEZ - Last Filed: 12/16/16 23:31> - Discharge Admitting Provider: Hospitalist Unit Admitted: Telemetry <MONICA GRIFFIN - Last Filed: 12/20/16 13:25> - Discharge Clinical Impression: Obstructive chronic bronchitis with exacerbation, Pulmonary fibrosis Condition: Serious Disposition: ADMITTED OBSERVATION Scribe Documentation - Scribe Written by Scribe:: Tad Martinez 12/16/2016 [id number] acting as scribe for :: Nino <TAD MARTINEZ - Last Filed: 12/16/16 23:31>
[2016-12-16 23:06] LABS: ARTERIAL BLOOD BASE EXCESS 3.5 mmol/L; ARTERIAL BLOOD O2 SATURATION 93.1 % (94-98)
[2016-12-16 23:10] LABS: ABSOLUTE EOSINOPHILS # (AUTO) 0.1 10^3/uL (0.0-0.6); ABSOLUTE LYMPHOCYTES (AUTO) 0.9 10^3/uL (0.5-4.7); ABSOLUTE MONOCYTES (AUTO) 1.1 10^3/uL (0.1-1.4); ABSOLUTE NEUT (AUTO) 9.1 10^3/uL (1.7-8.2); BASOPHILS % (AUTO) 0.3 % (0-2); EOSINOPHILS % (AUTO) 1.1 % (0-6); HEMATOCRIT 35.1 % (36.0-47.0); HGB HCT DIFFERENCE -2.1; LYMPHOCYTES % (AUTO) 8.3 % (13-45); MEAN CORPUSCULAR HEMOGLOBIN 24.6 pg (27.0-33.4); MEAN CORPUSCULAR HGB CONC 31.4 g/dL (32.0-36.0); MEAN CORPUSCULAR VOLUME 78 fl (80-97); MONOCYTES % (AUTO) 10.1 % (3-13); RED BLOOD COUNT 4.49 10^6/uL (3.72-5.28); RED CELL DISTRIBUTION WIDTH 16.5 % (11.5-14.0); SEGMENTED NEUTROPHILS % (AUTO) 80.2 % (42-78); WHITE BLOOD COUNT 11.4 10^3/uL (4.0-10.5)
[2016-12-16] MEDS ORDERED: METHYLPREDNISOLONE INJ 125 MG/2 ML SDV IV ONE (23:22)
[2016-12-16] MEDS ORDERED: CARBOXYMETHYLCELLULOSE SOD 0.5% 0.4 ML DROPERETTE OU PRN (23:35)
[2016-12-16] MEDS ORDERED: BENZONATATE 100 MG CAPSULE PO PRN (23:35)
[2016-12-16] MEDS ORDERED: ONDANSETRON HCL INJ/PF 4 MG/2 ML SDV IV PRN (23:37)
[2016-12-16] MEDS ORDERED: NORMAL SALINE 1000 ML 1,000 ML IV ONE (23:40)
[2016-12-16] MEDS ORDERED: MIRTAZAPINE 15 MG TABLET PO SCH (23:45)
[2016-12-17] MEDS ORDERED: DIAZEPAM 2 MG TABLET PO ONE (00:15)
[2016-12-17] MEDS ORDERED: FLUTICASONE NASAL SPRAY 50 MCG/SPRY 120 SPRAY/16 GM NASL ONE (00:16)
[2016-12-17 00:35] LABS: ANION GAP 9 (5-19); BLOOD UREA NITROGEN 20 mg/dL (7-20); CALCIUM 9.5 mg/dL (8.4-10.2); CARBON DIOXIDE 25 mmol/L (22-30); CHLORIDE 105 mmol/L (98-107); CREATININE RESULT 0.53 mg/dL (0.52-1.25); GLUCOSE 165 mg/dL (75-110); SODIUM 139.1 mmol/L (137-145)
[2016-12-17] MEDS: ACETAMINOPHEN 325 MG TABLET PO PRN ×2 (02:02→23:06)
[2016-12-17] MEDS: IPRATROPIUM/ALBUTEROL 0.5-2.5 MG/3 ML AMPUL NEB SCH ×4 (02:08→19:32)
--- NOTE | 2016-12-17 05:34 | PDOC H&P ---
History of Present Illness Admission Date/PCP: 12/16/16 23:37 Patient complains of: Shortness of breath History of Present Illness: SANG CHOW is a 86 year old female with a past history of end stage pulmonary fibrosis complicated by bronchiectasis and severe anxiety was recently discharge from acute care hospitalization 12 days ago and has had exceptional 24 hours of shortness of breath and uncontrolled anxiety. In the emergency room she's found to have a severe rhonchi and nonproductive cough with tachypnea of 40-50 and respiratory alkalosis. She started on empiric antibiotics and steroids referred to the hospitalist for admission. Past Medical History Cardiac Medical History: Denies: Congestive Heart Failure, DVT, Myocardial Infarction, Hyperlipidema, Hypertension, Pulmonary Embolism Pulmonary Medical History: Reports: Asthma, Chronic Obstructive Pulmonary Disease (COPD), Pneumonia, Other - Pulmonary fibrosis bronchiectasis Neurological Medical History: Denies: Seizures Endocrine Medical History: Reports: Diabetes Mellitus Type 2 - Steroid-induced hyperglycemia Denies: Diabetes Mellitus Type 1, Hyperthyroidism, Hypothyroidism GI Medical History: Denies: Cirrhosis, Gastroesophageal Reflux Disease, Hepatitis Musculoskeltal Medical History: Denies: Arthritis Psychiatric Medical History: Reports: Depression, General Anxiety Disorder Infectious Medical History: Reports: Methicillin-Resistant Staph Aureus Past Surgical History Past Surgical History: Reports: Cholecystectomy Social History Smoking Status: Former Smoker Frequency of Alcohol Use: None Hx Recreational Drug Use: No Drugs: None Hx Prescription Drug Abuse: No - Advance Directive Resuscitation Status: Do Not Resuscitate Family History Family History: Hypertension Parental Family History Reviewed: Yes Children Family History Reviewed: Yes Sibling(s) Family History Reviewed.: Yes Medication/Allergy Home Medications: Benzonatate [Tessalon Perles 100 mg Capsule] 100 mg PO TIDP PRN 11/30/16 Ipratropium/Albuterol Sulfate [Iprat-Albut 0.5-3(2.5) mg/3 ml] 3 ml NEB Q6HP PRN 11/30/16 Mirtazapine [Remeron 15 mg Tablet] 15 mg PO QHS 11/30/16 Multivitamin [Multivitamins] 1 each PO DAILY 11/30/16 Acetaminophen [Tylenol 325 mg Tablet] 975 mg PO Q8 tablet 12/04/16 Calcium Carbonate/Vitamin D3 [Os-Samuel 250 mg with Vitamin D 125 Units] 2 tab PO DAILY tablet 12/04/16 Carboxymethylcellulose Sodium [Refresh Plus 0.5% Oph Soln 0.4 ml Droperette] 1 drop OU HSP PRN droperette 12/04/16 Fluticasone Propionate [Flonase Nasal Big Bar 50 Mcg/Big Bar 16 gm] 2 spray NASL Q12 spray.pump 12/04/16 Levofloxacin [Levaquin 250 mg Tablet] 250 mg PO DAILY #5 tablet 12/04/16 Prednisone [Deltasone 20 mg Tablet] 20 mg PO DAILY #3 tablet 12/04/16 Allergies/Adverse Reactions: No Known Allergies Allergy (Verified 11/29/16 18:35) Review of Systems ROS unobtainable: Due to mental status Physical Exam Vital Signs: Temp Pulse Resp BP Pulse Ox 97.3 F 79 26 H 140/58 H 93 12/17/16 04:45 12/17/16 04:45 12/17/16 04:45 12/17/16 04:45 12/17/16 04:45 Intake & Output 12/15/16 12/16/16 12/17/16 11:59 11:59 11:59 Weight 40.5 kg General appearance: PRESENT: cooperative, severe distress, thin Head exam: PRESENT: atraumatic, normocephalic Eye exam: PRESENT: conjunctiva pink, EOMI, PERRLA. ABSENT: scleral icterus Ear exam: PRESENT: normal external ear exam Mouth exam: PRESENT: moist, tongue midline Neck exam: ABSENT: carotid bruit, JVD, lymphadenopathy, thyromegaly Respiratory exam: PRESENT: accessory muscle use, crackles, decreased breath sounds, prolonged expiratory phas, rales, rhonchi, tachypnea. ABSENT: chest wall tenderness, clear to auscultation gómez, retraction, stridor, wheezes Cardiovascular exam: PRESENT: RRR. ABSENT: diastolic murmur, rubs, systolic murmur Pulses: PRESENT: normal dorsalis pedis pul Vascular exam: PRESENT: normal capillary refill GI/Abdominal exam: PRESENT: normal bowel sounds, soft. ABSENT: distended, guarding, mass, organolmegaly, rebound, tenderness Rectal exam: PRESENT: deferred Extremities exam: PRESENT: full ROM. ABSENT: calf tenderness, clubbing, pedal edema Neurological exam: PRESENT: alert, awake, oriented to person, oriented to place , oriented to time, oriented to situation, CN II-XII grossly intact. ABSENT: motor sensory deficit Psychiatric exam: PRESENT: anxious. ABSENT: homicidal ideation, suicidal ideation Skin exam: PRESENT: dry, intact, warm. ABSENT: cyanosis, rash Results Laboratory Results: 12/17/16 00:13 12/17/16 00:13 Sodium 139.1 Potassium 4.0 Chloride 105 Carbon Dioxide 25 Anion Gap 9 BUN 20 Creatinine 0.53 Est GFR ( Amer) > 60 Est GFR (Non-Af Amer) > 60 Glucose 165 H Calcium 9.5 12/17/16 00:13 NT-Pro-B Natriuret Pep 1430 H Impressions: Chest X-Ray 12/16/16 22:23 IMPRESSION: Slightly improved but persistent airspace opacities in the lung bases. Assessment & Plan - Diagnosis (1) Acute and chronic respiratory failure ([id number]) Qualifiers: Respiratory failure complication: hypoxia and hypercapnia Qualified Code(s): J96.21 - Acute and chronic respiratory failure with hypoxia Is this a current diagnosis for this admission?: YesPlan: Patient is hypoxic and hypercapnic with a respiratory alkalosis. Admitted to monitored bed with a pneumonia care set, albuterol Atrovent, empiric antibiotics , stress dose steroids, Flonase and supplemental oxygen by mask at 50%. (2) Pulmonary fibrosis Is this a current diagnosis for this admission?: YesPlan: Stress dose steroids, supplemental oxygen and flutter valve (3) Anxiety Is this a current diagnosis for this admission?: YesPlan: Patient suffers from anxiety at baseline and has had recurrent exacerbations associated with end-stage pulmonary fibrosis with suboptimal management given the drug of choice reduces respiratory drive. Patient is DO NOT RESUSCITATE without expected recovery I will obtain a hospice consult. Continuing when necessary benzodiazepine - Time Time Spent: 30 to 50 Minutes
[2016-12-17] MEDS ORDERED: HEPARIN SOD (PORCINE) 5,000 UNIT/ML 1 ML SYRINGE SUBCUT SCH (06:00)
[2016-12-17] MEDS ORDERED: DILTIAZEM HCL 30 MG TABLET PO ONE (06:45)
[2016-12-17 08:40] LABS: ABSOLUTE LYMPHOCYTES (AUTO) 0.8 10^3/uL (0.5-4.7); ABSOLUTE MONOCYTES (AUTO) 0.2 10^3/uL (0.1-1.4); ABSOLUTE NEUT (AUTO) 8.6 10^3/uL (1.7-8.2); BASOPHILS % (AUTO) 0.1 % (0-2); HEMATOCRIT 33.1 % (36.0-47.0); HEMOGLOBIN 10.5 g/dL (12.0-15.5); HGB HCT DIFFERENCE -1.6; LYMPHOCYTES % (AUTO) 7.9 % (13-45); MEAN CORPUSCULAR HEMOGLOBIN 24.7 pg (27.0-33.4); MEAN CORPUSCULAR HGB CONC 31.8 g/dL (32.0-36.0); MEAN CORPUSCULAR VOLUME 78 fl (80-97); MONOCYTES % (AUTO) 2.4 % (3-13); RED BLOOD COUNT 4.26 10^6/uL (3.72-5.28); RED CELL DISTRIBUTION WIDTH 16.4 % (11.5-14.0); SEGMENTED NEUTROPHILS % (AUTO) 89.6 % (42-78); WHITE BLOOD COUNT 9.6 10^3/uL (4.0-10.5)
[2016-12-17 09:24] LABS: ANION GAP 10 (5-19); BLOOD UREA NITROGEN 18 mg/dL (7-20); CALCIUM 8.7 mg/dL (8.4-10.2); CARBON DIOXIDE 24 mmol/L (22-30); CHLORIDE 108 mmol/L (98-107); CREATININE RESULT 0.56 mg/dL (0.52-1.25); GLUCOSE 223 mg/dL (75-110); POTASSIUM 4.4 mmol/L (3.6-5.0); SODIUM 142.1 mmol/L (137-145)
[2016-12-17 09:35] LABS: CREATINE KINASE MB 1.06 ng/mL (<4.55); TROPONIN I 0.028 ng/mL
[2016-12-17] MEDS: FLUTICASONE NASAL SPRAY 50 MCG/SPRY 120 SPRAY/16 GM NASL SCH ×2 (10:24→21:02)
[2016-12-17] MEDS: CALCIUM CARBONATE 250 MG/VITAMIN D3 125 UNIT TABLET PO SCH (10:24)
[2016-12-17] MEDS: PREDNISONE 20 MG TABLET PO SCH ×2 (10:24→19:03)
[2016-12-17] MEDS: DOCUSATE SODIUM 100 MG CAPSULE PO SCH ×2 (10:24→19:03)
[2016-12-17] MEDS: GUAIFENESIN 600 MG TABLET.SA PO PRN (10:24)
[2016-12-17] MEDS ORDERED: DILTIAZEM HCL 60 MG TABLET PO SCH (12:00)
--- NOTE | 2016-12-17 12:34 | EKG REPORT ---
SEVERITY:- ABNORMAL ECG - ATRIAL FIBRILLATION, V-RATE 101-158 : Confirmed by: Cali Miguel 17-Dec-2016 12:33:17
[2016-12-17 13:34] LABS: CREATINE KINASE MB 1.34 ng/mL (<4.55); TROPONIN I 0.013 ng/mL
[2016-12-17] MEDS: DILTIAZEM HCL 30 MG TABLET PO SCH ×3 (15:37→23:36)
--- NOTE | 2016-12-17 15:47 | PDOC PROGRESS REPORT ---
Subjective Progress Note for:: 12/17/16 Subjective:: Patient was seen on morning rounds. She is resting comfortably in bed at the present time. She still appears tachypneic at rest. She denies any dyspnea at the present time. She is a nonproductive cough. She denies fever or chills. She denies nausea, vomiting, abdominal pain or diarrhea. She denies any headaches, dizziness or arthralgias. She states she did not sleep well last night and is tired. Physical Exam Vital Signs: Temp Pulse Resp BP Pulse Ox 97.4 F 109 H 18 105/51 L 98 12/17/16 12:05 12/17/16 13:42 12/17/16 13:42 12/17/16 12:05 12/17/16 12:05 Intake & Output 12/16/16 12/17/16 12/18/16 06:59 06:59 06:59 Weight 40.5 kg General appearance: PRESENT: no acute distress, thin, well-developed Head exam: PRESENT: atraumatic, normocephalic Eye exam: PRESENT: conjunctiva pink, EOMI, PERRLA. ABSENT: scleral icterus Ear exam: PRESENT: normal external ear exam Mouth exam: PRESENT: moist, tongue midline Neck exam: ABSENT: carotid bruit, JVD, lymphadenopathy, thyromegaly Respiratory exam: PRESENT: rales - inspiratory crackles throughout, symmetrical , tachypnea Cardiovascular exam: PRESENT: RRR. ABSENT: diastolic murmur, rubs, systolic murmur Pulses: PRESENT: normal dorsalis pedis pul Vascular exam: PRESENT: normal capillary refill GI/Abdominal exam: PRESENT: normal bowel sounds, soft. ABSENT: distended, guarding, mass, organolmegaly, rebound, tenderness Rectal exam: PRESENT: deferred Extremities exam: PRESENT: full ROM. ABSENT: calf tenderness, clubbing, pedal edema Neurological exam: PRESENT: alert, awake, oriented to person, oriented to place , oriented to time, oriented to situation, CN II-XII grossly intact. ABSENT: motor sensory deficit Psychiatric exam: PRESENT: anxious Skin exam: PRESENT: dry, intact, warm. ABSENT: cyanosis, rash Results Laboratory Results: 12/17/16 08:06 12/17/16 08:06 12/17/16 12/17/16 12/17/16 00:13 08:06 08:06 WBC 9.6 RBC 4.26 Hgb 10.5 L Hct 33.1 L MCV 78 L MCH 24.7 L MCHC 31.8 L RDW 16.4 H Plt Count 381 Seg Neutrophils % 89.6 H Lymphocytes % 7.9 L Monocytes % 2.4 L Eosinophils % 0.0 Basophils % 0.1 Absolute Neutrophils 8.6 H Absolute Lymphocytes 0.8 Absolute Monocytes 0.2 Absolute Eosinophils 0.0 Absolute Basophils 0.0 Sodium 139.1 142.1 Potassium 4.0 4.4 Chloride 105 108 H Carbon Dioxide 25 24 Anion Gap 9 10 BUN 20 18 Creatinine 0.53 0.56 Est GFR ( Amer) > 60 > 60 Est GFR (Non-Af Amer) > 60 > 60 Glucose 165 H 223 H Calcium 9.5 8.7 12/17/16 12/17/16 12/17/16 00:13 08:06 08:06 Creatine Kinase < 20 L CK-MB (CK-2) 1.06 Troponin I 0.028 NT-Pro-B Natriuret Pep 1430 H 12/17/16 12/17/16 12:46 12:46 Creatine Kinase < 20 L CK-MB (CK-2) 1.34 Troponin I 0.013 NT-Pro-B Natriuret Pep Impressions: Chest X-Ray 12/16/16 22:23 IMPRESSION: Slightly improved but persistent airspace opacities in the lung bases. Assessment & Plan - Diagnosis (1) DNR (do not resuscitate) Plan: Patient wishes to go home with [facility] services. We will arrange for her to meet with [facility] services today (2) Acute and chronic respiratory failure ([id number]) Qualifiers: Respiratory failure complication: hypoxia and hypercapnia Qualified Code(s): J96.21 - Acute and chronic respiratory failure with hypoxia Is this a current diagnosis for this admission?: YesPlan: Discussion with patient and her granddaughter, regarding goals for her care. We discussed the worsening of her pulmonary fibrosis and symptoms. We discussed the option of hospice care. The patient and her granddaughter are agreeable to this. She has been seen by a [facility] palliative care service, we will therefore consult [facility] hospice service to see her. (3) Pulmonary fibrosis Is this a current diagnosis for this admission?: YesPlan: Has had gradual progression of her pulmonary fibrosis on x-ray. She has no pneumonias at the present time. Continue current inhalers. (4) Anxiety Is this a current diagnosis for this admission?: YesPlan: Continue anxiolytics management from now on can be through [facility]. (5) Osteoarthritis Qualifiers: Osteoarthritis location: unspecified site Is this a current diagnosis for this admission?: YesPlan: Fall precautions - Time Time Spent with patient: 25-34 minutes Critical Time spent with patient: 15-24 minutes Medications reviewed and adjusted accordingly: Yes Anticipated discharge: Hospice Within: within 24 hours
[2016-12-17] MEDS: GUAIFENESIN SYRP 200 MG/10 ML UDC PO PRN ×2 (16:01→21:02)
[2016-12-17] MEDS: BUDESONIDE/FORMOTEROL 160-4.5 MCG 60 PUFF/6 GM MDI IH SCH (19:04)
[2016-12-17] MEDS ORDERED: MIRTAZAPINE 15 MG TABLET PO SCH (22:00)
[2016-12-17] MEDS ORDERED: LORAZEPAM 1 MG TABLET ONE (23:24)
[2016-12-18] MEDS: IPRATROPIUM/ALBUTEROL 0.5-2.5 MG/3 ML AMPUL NEB SCH ×2 (02:13→07:58)
[2016-12-18] MEDS: DILTIAZEM HCL 30 MG TABLET PO SCH ×2 (06:48→11:10)
[2016-12-18] MEDS ORDERED: LORAZEPAM 1 MG TABLET PO PRN (09:29)
[2016-12-18] MEDS: CALCIUM CARBONATE 250 MG/VITAMIN D3 125 UNIT TABLET PO SCH (09:53)
[2016-12-18] MEDS: DOCUSATE SODIUM 100 MG CAPSULE PO SCH (09:55)
[2016-12-18] MEDS: PREDNISONE 20 MG TABLET PO SCH (09:55)
[2016-12-18] MEDS: BUDESONIDE/FORMOTEROL 160-4.5 MCG 60 PUFF/6 GM MDI IH SCH (09:56)
[2016-12-18] MEDS: FLUTICASONE NASAL SPRAY 50 MCG/SPRY 120 SPRAY/16 GM NASL SCH (09:56)
[2016-12-18] MEDS: GUAIFENESIN 600 MG TABLET.SA PO PRN (09:57)
[2016-12-18] MEDS ORDERED: BISACODYL 10 MG SUPP.RECT PR ONE (10:00)
[2016-12-18] MEDS ORDERED: MAGNESIUM HYDROXIDE SUSP 30 ML UDCUP PO ONE (10:30)
[2016-12-18 11:07] VITALS: BP 130/65
--- NOTE | 2016-12-18 14:24 | PDOC DISCHARGE SUMMARY ---
General - Admit/Disc Date/PCP Admission Date/Primary Care Provider: 12/16/16 23:37 Discharge Date: 12/18/16 - Discharge Diagnosis (1) DNR (do not resuscitate) Summary: Patient is being discharged home with hospice services from [facility]. Portable DNR is with records (2) Acute and chronic respiratory failure ([id number]) Is this a current diagnosis for this admission?: YesSummary: Symptom management per Hospice (3) Pulmonary fibrosis Is this a current diagnosis for this admission?: YesSummary: Continue inhalers (4) Anxiety Is this a current diagnosis for this admission?: YesSummary: Ativan prn (5) Osteoarthritis Is this a current diagnosis for this admission?: YesSummary: Continue calcium supplements - Additional Information Resuscitation Status: Do Not Resuscitate Discharge Diet: Regular Discharge Activity: Activity As Tolerated, Balance Activity w/Rest Home Medications: Budesonide/Formoterol Fumarate [Symbicort HFA 160-4.5 mcg Inhaler 6 gm] 2 puff IH BID 12/17/16 Mirtazapine [Remeron 15 mg Tablet] 15 mg PO QHS 12/17/16 Acetaminophen [Tylenol 325 mg Tablet] 650 mg PO Q4HP PRN tablet 12/18/16 Carboxymethylcellulose Sodium [Refresh Plus 0.5% Oph Soln 0.4 ml Droperette] 1 drop OU HSP PRN droperette 12/18/16 Ipratropium/Albuterol Sulfate [Iprat-Albut 0.5-3(2.5) mg/3 ml] 3 ml IH Q6 #90 ampul.neb 12/18/16 Lorazepam [Ativan 1 mg Tablet] 1 mg PO Q4HP PRN #30 tablet 12/18/16 Prednisone [Deltasone 20 mg Tablet] 20 mg PO DAILY #30 tablet 12/18/16 History of Present Illness Patient complains of: SOB and dyspnea History of Present Illness: SANG CHOW is a 86 year old female with history of chronic bronchiectasis and pulmonary fibrosis on home oxygen, well known to our service from previous admissions. Presented to the emergency room on 12/16/2016, complaining of increasing shortness of breath and wheezing. She was found to have stable chest x-ray, compared to previous admission. She had no leukocytosis. Her cough was nonproductive. Her arterial blood gas was within normal limits. She was found to have increasing anxiety regarding her breathing. Patient was referred to the hospitalist service for observation admission. Hospital Course Hospital Course: She was admitted to telemetry floor nebulizer treatments and oral steroids. We discussed the option of hospice services with the patient and her granddaughter. She has been followed by palliative care and past. She is agreeable to hospice services at home, her granddaughter is also in agreement. Patient was seen by [facility] hospice service RN. The patient is agreeable to be discharged home with hospice services at home. Her granddaughter understands if her condition declined she can be transitioned to inpatient hospice services with [facility]. Patient was given Ativan by mouth for her anxiety with improvement of her symptoms. Physical Exam Vital Signs: Temp Pulse Resp BP Pulse Ox 97.3 F 103 H 22 H 130/65 H 100 12/18/16 11:04 12/18/16 11:04 12/18/16 11:04 12/18/16 11:04 12/18/16 11:04 Intake & Output 12/17/16 12/18/16 12/19/16 06:59 06:59 06:59 Intake Total 670 Balance 670 Weight 40.5 kg General appearance: PRESENT: mild distress, thin, well-developed Head exam: PRESENT: atraumatic, normocephalic Eye exam: PRESENT: conjunctiva pale Ear exam: PRESENT: normal external ear exam Mouth exam: PRESENT: dry mucosa Neck exam: ABSENT: carotid bruit, JVD, lymphadenopathy, thyromegaly Respiratory exam: PRESENT: rales, symmetrical, tachypnea Cardiovascular exam: PRESENT: RRR. ABSENT: diastolic murmur, rubs, systolic murmur Pulses: PRESENT: normal dorsalis pedis pul Vascular exam: PRESENT: normal capillary refill GI/Abdominal exam: PRESENT: normal bowel sounds, soft. ABSENT: distended, guarding, mass, organolmegaly, rebound, tenderness Rectal exam: PRESENT: deferred Extremities exam: PRESENT: full ROM. ABSENT: calf tenderness, clubbing, pedal edema Neurological exam: PRESENT: alert, awake, oriented to person, oriented to place , oriented to time, oriented to situation, CN II-XII grossly intact. ABSENT: motor sensory deficit Psychiatric exam: PRESENT: anxious Skin exam: PRESENT: dry, intact, warm. ABSENT: cyanosis, rash Results Laboratory Results: 12/17/16 08:06 12/17/16 08:06 12/17/16 12/17/16 12/17/16 00:13 08:06 08:06 Creatine Kinase < 20 L CK-MB (CK-2) 1.06 Troponin I 0.028 NT-Pro-B Natriuret Pep 1430 H 12/17/16 12/17/16 12:46 12:46 Creatine Kinase < 20 L CK-MB (CK-2) 1.34 Troponin I 0.013 NT-Pro-B Natriuret Pep Impressions: Chest X-Ray 12/16/16 22:23 IMPRESSION: Slightly improved but persistent airspace opacities in the lung bases. Qualifiers PATEINT BEING DISCHARGED WITH ANY OF THE FOLLOWING DIAGNOSIS?: No Plan Discharge Plan: Discharge home Time Spent: Less than 30 Minutes
== END 2016-12-18 11:46 | disposition hospice, home (50) ==
LOC: ER 21:58 → EH 23:37 → UNDOADMOB 23:58 → EH 23:58 → 4N 12-17 05:05
PROVIDERS: ADMIT Internal Medicine; ATTEND Internal Medicine
PROC: 3E0337Z Introduction of Electrolytic and Water Balance Substance into Peripheral Vein, Percutaneous Approach (ICD-10-PCS; principal; 2016-12-16)
PROC: 3E033GC Introduction of Other Therapeutic Substance into Peripheral Vein, Percutaneous Approach (ICD-10-PCS; 2016-12-16)
DX: J96.21 Acute and chronic respiratory failure with hypoxia (principal); J96.22 Acute and chronic respiratory failure with hypercapnia; Z66 Do not resuscitate; J84.10 Pulmonary fibrosis, unspecified; F41.9 Anxiety disorder, unspecified; M19.90 Unspecified osteoarthritis, unspecified site; Z99.81 Dependence on supplemental oxygen; J44.9 Chronic obstructive pulmonary disease, unspecified; J45.909 Unspecified asthma, uncomplicated; E09.9 Drug or chemical induced diabetes mellitus without complications; T38.0X5A Adverse effect of glucocorticoids and synthetic analogues, initial encounter; Z87.891 Personal history of nicotine dependence
CPT/HCPCS: 94640 ×3; 99291; 96361; 96374; 36415 ×2; 82553; 82803; 82550; 85025 ×2; 80048; 84484; 87804; 83880; 71010; 93005; 93010; 36600; G0378 ×3; A9270 ×19; J1644; J3490 ×2; J2930; J7030; J7512; J7620